=== PATIENT | female | born 1970 | race Caucasian/White ===

== ENCOUNTER → 2019-12-05 11:21 | Outpatient (CLI) | payer OTHER, MEDICAID, SELFPAY ==
--- NOTE | 2019-12-05 11:24 | DI.RAD.S_ITS ---
PROCEDURE: XR ANKLE RT MIN 3V INDICATIONS: Evaluate chronic ankle sprain TECHNIQUE: 3 views of the ankle were acquired. COMPARISON: None. FINDINGS: Bones: No fractures or dislocations. Ankle mortise is normally aligned. No suspicious bony lesions. Calcaneal spur is present. Minimal midfoot degenerative change. Soft tissues: No tibiotalar joint effusion. Achilles tendon appears normal. IMPRESSION: No visualized acute fracture or dislocation. However, if clinical concern and/or pain persist, short interval imaging followup in 7-10 days is recommended, as occult injury cannot be definitively excluded. Dictated by: Daphnie Molina M.D. on 12/05/2019 at 13:55 Approved by: Daphnie Molina M.D. on 12/05/2019 at 13:55
== END ==
PROVIDERS: PCP Family Medicine; Referring Provider Family Medicine; Visit Provider Family Medicine
DX: S93.401A Sprain of unspecified ligament of right ankle, initial encounter (principal); X58.XXXA Exposure to other specified factors, initial encounter
CPT/HCPCS: 73610

== ENCOUNTER → 2019-12-06 09:28 | Outpatient (CLI) | payer OTHER, MEDICAID, SELFPAY ==
[2019-12-06 10:19] LABS: Alanine Aminotransferase 15 IU/L (<35); Albumin Globulin Ratio 1.3 (1.0-2.8); Alkaline Phosphatase 37 U/L (38-126); Aspartate Aminotransferase 24 IU/L (14-36); BUN Creatinine Ratio 15.2 (6-22); Bilirubin Total 0.5 mg/dL (0.2-1.3); Blood Urea Nitrogen 10 mg/dL (7-17); Calcium 8.8 mg/dL (8.4-10.2); Carbon Dioxide 30 mmol/L (22-32); Chloride 105 mmol/L (98-107); Cholesterol 147 mg/dL (140-199); Estimated Glomerular Filt Rate > 60.0 mL/min (>60); Glucose 88 mg/dL (70-100); HDL Cholesterol 55 mg/dL (40-60); HEMOLYSIS < 15 (0-50); LDL Cholesterol Calculated 76 mg/dL (<100); Potassium 3.8 mmol/L (3.4-5.1); Sodium 138 mmol/L (137-145); Triglycerides 82 mg/dL (35-150)
[2019-12-06 10:24] LABS: Hemoglobin A1C% w Est Avg Glu 5.2 % (4.0-6.0)
== END ==
PROVIDERS: PCP Family Medicine; Referring Provider Family Medicine; Visit Provider Family Medicine
DX: Z00.01 Encounter for general adult medical examination with abnormal findings (principal)
CPT/HCPCS: 36415; 80053; 80061; 83036

== ENCOUNTER → 2019-12-09 11:17 | Outpatient (CLI) | payer OTHER, MEDICAID, SELFPAY ==
[2019-12-10 19:04] LABS: Fecal Immunochemical Test Negative (Negative)
== END ==
PROVIDERS: PCP Family Medicine; Referring Provider Family Medicine; Visit Provider Family Medicine
DX: Z00.01 Encounter for general adult medical examination with abnormal findings (principal)
CPT/HCPCS: 82274

== ENCOUNTER → 2020-01-06 15:56 | Outpatient (CLI) | payer OTHER, MEDICAID, SELFPAY | PROVIDERS: Family Provider Family Medicine; PCP Family Medicine; Visit Provider Registered Nurse | DX: R10.9 Unspecified abdominal pain (principal) | CPT/HCPCS: 87086 ==

== ENCOUNTER → 2020-01-06 16:00 | Outpatient (CLI) | payer OTHER, MEDICAID, SELFPAY ==
[2020-01-06 17:10] LABS: Add Manual Diff / Slide Review NO; Basophils Absolute Auto 100 /uL (0-100); Basophils Percent Auto 0.6 % (0-2); Eosinophils Absolute Auto 0 /uL (0-450); Eosinophils Percent Auto 0.5 % (2-4); Hematocrit 39.9 % (36-46); Hemoglobin 13.5 g/dL (12.0-16.0); Lymphocytes Absolute Auto 1800 /uL (1100-4500); Lymphocytes Percent Auto 22.4 % (25-40); Mean Corpuscular HGB Conc 33.7 % (30-36); Mean Corpuscular Hemoglobin 32.3 PG (26-34); Mean Corpuscular Volume 95.8 fL (80-100); Monocytes Absolute Auto 600 /uL (0-900); Monocytes Percent Auto 6.9 % (3-14); Neutrophils Absolute Auto 5600 /uL (1500-7000); Neutrophils Percent Auto 69.6 % (50-75); Platelet Count 211 X10^3/uL (150-400); Red Blood Cell Count 4.16 X10^6/uL (4.0-5.2); Red Cell Distribution Width 12.7 % (11.6-14.8); White Blood Cell Count 8.1 X10^3/uL (4.5-11.0)
[2020-01-06 17:29] LABS: Alanine Aminotransferase 16 IU/L (<35); Albumin 4.3 g/dL (3.5-5.0); Albumin Globulin Ratio 1.3 (1.0-2.8); Alkaline Phosphatase 49 U/L (38-126); Aspartate Aminotransferase 25 IU/L (14-36); Bilirubin Total 0.5 mg/dL (0.2-1.3); Blood Urea Nitrogen 13 mg/dL (7-17); Calcium 9.1 mg/dL (8.4-10.2); Carbon Dioxide 27 mmol/L (22-32); Chloride 106 mmol/L (98-107); Estimated Glomerular Filt Rate > 60.0 mL/min (>60); Globulin 3.4 g/dL (1.7-4.1); Glucose 102 mg/dL (70-100); HEMOLYSIS < 15 (0-50); Lipase 93 U/L (23-300); Potassium 3.4 mmol/L (3.4-5.1); Sodium 138 mmol/L (137-145); Total Protein 7.7 g/dL (6.3-8.2)
== END ==
PROVIDERS: Family Provider Family Medicine; PCP Family Medicine; Referring Provider Registered Nurse; Visit Provider Registered Nurse
DX: R10.9 Unspecified abdominal pain (principal)
CPT/HCPCS: 36415; 80053; 83690; 85025; 87086

== ENCOUNTER → 2020-01-13 09:49 | Outpatient (CLI) | payer OTHER, MEDICAID, SELFPAY ==
--- NOTE | 2020-01-13 09:51 | DI.US.S_ITS ---
PROCEDURE: US RENAL COMPLETE INDICATIONS: RIGHT FLANK PAIN TECHNIQUE: Real-time scanning was performed of the kidneys and bladder, with image documentation. COMPARISON: None. FINDINGS: Kidneys: Kidneys are normal in size. Right kidney measures 12.9 cm long; left kidney measures 10.6 cm long. Right renal cortical thickness is 1.6 cm; left renal cortical thickness is 0.9 cm. Renal cortical echotexture is normal. No hydronephrosis or nephrolithiasis. No suspicious solid mass lesions. Bladder: Pre-void bladder volume is 357 mL. Post-void residual is 37 mL. Pre-void images demonstrate no intraluminal masses or stones. On pre-void images, both ureteral jets are noted with color Doppler interrogation. (Of note, ureteral jets may not be detectable in up to 25% of cases due to insufficient differences in specific gravity between ureteral and bladder urine). Miscellaneous: No free pelvic fluid. IMPRESSION: No hydronephrosis is seen. Normal appearing kidneys. Mild to moderate postvoid residual, 37 cc. Dictated by: Rosalio Monroy M.D. on 01/13/2020 at 9:57 Approved by: Rosalio Monroy M.D. on 01/13/2020 at 9:58
== END ==
PROVIDERS: Family Provider Family Medicine; PCP Family Medicine; Referring Provider Registered Nurse; Visit Provider Registered Nurse
DX: R10.9 Unspecified abdominal pain (principal)
CPT/HCPCS: 76770

== ENCOUNTER → 2020-01-20 14:56 | Outpatient (CLI) | payer OTHER, MEDICAID, SELFPAY ==
[2020-01-20 15:03] LABS: Bacteria Urine None Seen; RBC Urine None Seen (0-5/HPF); WBC Urine None Seen (0-5/HPF)
[2020-01-20 16:17] LABS: Appearance Urine UA CLEAR; Bilirubin Urine UA NEGATIVE (NEGATIVE); Color Urine UA YELLOW; Glucose Urine UA NEGATIVE (Negative); Ketones Urine UA 1+ (NEGATIVE); Leukocyte Esterase Urine UA NEGATIVE (NEGATIVE); Nitrite Urine UA NEGATIVE (Negative); Occult Blood Urine UA TRACE-INTACT (Negative); Protein Urine UA NEGATIVE (Negative); Urobilinogen Urine UA 0.2 E.U./dL (0.2)
[2020-01-20 16:24] LABS: pH Urine UA 5.5 (4.5-8.0)
[2020-01-20 16:30] LABS: Culture Indicated Urine Cult Not Indicated; Urine Comments Microscopic Normal
== END ==
PROVIDERS: Family Provider Family Medicine; PCP Family Medicine; Referring Provider Registered Nurse; Visit Provider Registered Nurse
DX: R10.9 Unspecified abdominal pain (principal)
CPT/HCPCS: 81001

== ENCOUNTER → 2020-01-30 08:59 | Outpatient (CLI) | payer OTHER, MEDICAID, SELFPAY ==
--- NOTE | 2020-01-30 09:19 | DI.CT.S_ITS ---
PROCEDURE: CT KIDNEY URETER BLADDER (KUB) INDICATIONS: right flank pain TECHNIQUE: Noncontrast 5 mm thick sections acquired from the diaphragms to the symphysis. 5 mm thick coronal and sagittal reformats were then performed. For radiation dose reduction, the following was used: automated exposure control, adjustment of mA and/or kV according to patient size. COMPARISON: None. FINDINGS: Image quality: Excellent. Lung bases: Lung bases are clear. Heart size is normal. Urinary system: Right kidney: No stones or hydronephrosis. Right ureter: Unremarkable Left kidney: No stones or hydronephrosis. Left ureter: Unremarkable Bladder: No bladder stones. No bladder wall thickening. Other solid organs: There is a 1.4 cm pulmonary nodule in the left lower lobe on image 3/2. Liver is normal in size. There is a 4.3 cm maximum diameter hypodense right lobe liver lesion in segment 6. Gallbladder is unremarkable. Pancreas is normal in contours. Spleen is normal in size. No adrenal nodules. Peritoneum and bowel: Unenhanced bowel loops demonstrate normal wall thickness and caliber. No free fluid or air. Nodes and vessels: No retroperitoneal or mesenteric adenopathy by size criteria. Aorta and inferior vena cava are normal in caliber. Abdominal wall: No ventral hernias. Pelvis: No free pelvic fluid. No inguinal hernias or adenopathy. Bones: No suspicious bony lesions. No vertebral body compression fractures. IMPRESSION: 1. No evidence of renal stone, ureteral stone, or hydronephrosis. 2. There is a 4.3 cm maximum diameter right lobe liver lesion, as well as a 1.4 cm left lower lobe pulmonary nodule. Consider metastatic disease. Recommend CT of the chest, abdomen, and pelvis with contrast. Dictated by: Jey Warner M.D. on 01/30/2020 at 9:46 Approved by: Jey Warner M.D. on 01/30/2020 at 9:58
== END ==
PROVIDERS: Family Provider Family Medicine; PCP Family Medicine; Referring Provider Registered Nurse; Visit Provider Registered Nurse
DX: R10.84 Generalized abdominal pain (principal); R10.9 Unspecified abdominal pain; R91.1 Solitary pulmonary nodule; K76.9 Liver disease, unspecified
CPT/HCPCS: 74176

== ENCOUNTER → 2020-02-03 15:39 | Outpatient (CLI) | payer OTHER, MEDICAID, SELFPAY ==
--- NOTE | 2020-02-03 15:42 | DI.RAD.S_ITS ---
PROCEDURE: XR LUMBAR SPINE 2-3V INDICATIONS: lower back pain TECHNIQUE: 3 views of the lumbar spine were acquired. COMPARISON: None. FINDINGS: Bones: 5 [id number] vertebrae are present. There is trace retrolisthesis of L2 on L3, L3 on L4. Moderate to severe disc and foraminal narrowing are noted at L4-5, moderate at L5-S1. Multilevel non bridging anterior osteophytes are present most notable at L1, L2 and L3. No vertebral body compression fractures. No suspicious bony lesions. Soft tissues: Overlying bowel gas pattern is normal. No suspicious soft tissue calcifications. IMPRESSION: Degenerative changes most notable at L5-S1. Dictated by: Daphnie Molina M.D. on 02/03/2020 at 16:51 Approved by: Daphnie Molina M.D. on 02/03/2020 at 16:51
== END ==
PROVIDERS: Family Provider Family Medicine; PCP Family Medicine; Referring Provider Registered Nurse; Visit Provider Registered Nurse
DX: M54.5 Low back pain (principal); M47.817 Spondylosis without myelopathy or radiculopathy, lumbosacral region
CPT/HCPCS: 72100

== ENCOUNTER → 2020-02-05 10:24 | Outpatient (CLI) | payer OTHER, MEDICAID, SELFPAY ==
--- NOTE | 2020-02-05 10:51 | DI.CT.S_ITS ---
PROCEDURE: CT CHEST ABD PEL W CON INDICATIONS: Liver mass TECHNIQUE: After the administration of intravenous contrast, 5 mm thick sections acquired from the lung apices to the symphysis. 5 mm coronal and sagittal reformats were performed, with additional 7 mm MIP reformats through the lungs. For radiation dose reduction, the following was used: automated exposure control, adjustment of mA and/or kV according to patient size. COMPARISON: [facility], CT, CT KIDNEY URETER BLADDER (KUB), 01/30/2020, 9:04. FINDINGS: Image quality: Excellent. CHEST: Lungs and pleura: Within the left lower lobe, there is a 1.5 cm lobulated mass, as on series 3, image 151. There is a 4 mm subpleural nodule seen involving the right upper lobe posteriorly, as on series 3, image 47. Minimal infiltrate is seen involving the lingula laterally, as on series 3, image 101. No pleural effusions or pneumothorax. Central and peripheral airways appear patent and normal in caliber. Mediastinum: Heart size is normal. No pericardial effusion. No mediastinal or hilar adenopathy by size criteria. Thoracic aorta and central pulmonary arteries are normal in size. Esophagus is normal in caliber. No hiatal hernia. Chest wall: No axillary or supraclavicular adenopathy by size criteria. Thyroid gland demonstrates no significant abnormality. ABDOMEN: Solid organs: Within the right inferior liver medially (segment 6), there is again seen a poorly enhancing mass that measures 4.8 x 3.6 cm in greatest axial dimension, with a craniocaudal extent of 4.3 cm. No definite additional liver masses are seen. Gallbladder is partially collapsed at the time of this study. Biliary system is non dilated. Pancreas enhances normally. Spleen is normal in size and enhancement. No adrenal nodules. Kidneys demonstrate normal size and enhancement, without hydronephrosis. Peritoneum and bowel: Bowel loops demonstrate normal wall thickness and caliber. No free fluid or air. A normal appendix is incidentally noted. Nodes and vessels: No retroperitoneal or mesenteric adenopathy by size criteria. Aorta and inferior vena cava are normal in size. Miscellaneous: No ventral hernias. PELVIS: Genitourinary: Bladder wall thickness is normal. Miscellaneous: No inguinal hernias or adenopathy. Bones: No suspicious bony lesions. No vertebral body compression fractures. Focal L5-S1 degenerative change is seen. Milder degenerative changes are seen elsewhere. IMPRESSION: The previously seen liver mass and left lower lobe pulmonary nodule are again seen. Within the right lung apex, there is a 4 mm subpleural nodule seen, which may represent metastatic disease, although is more likely related to a subpleural lymph node. No additional masses or enlarged lymph nodes are detected. If clinically appropriate, please consider a dedicated PET-CT for further evaluation. Within the lateral lingula, there is mild infiltrate seen. Incidental note is made of: Focal L5-S1 degenerative change Dictated by: Rosalio Monroy M.D. on 02/05/2020 at 9:51 Approved by: Rosalio Monroy M.D. on 02/05/2020 at 10:01
== END ==
PROVIDERS: Family Provider Family Medicine; PCP Family Medicine; Referring Provider Family Medicine; Visit Provider Family Medicine
DX: R16.0 Hepatomegaly, not elsewhere classified (principal); R91.1 Solitary pulmonary nodule; M47.817 Spondylosis without myelopathy or radiculopathy, lumbosacral region
CPT/HCPCS: 71260; 74177; Q9967

== ENCOUNTER → 2020-02-23 10:46 | Outpatient (CLI) | payer OTHER, MEDICAID, SELFPAY ==
[2020-02-23 11:30] LABS: Add Manual Diff / Slide Review NO; Basophils Absolute Auto 0 /uL (0-100); Basophils Percent Auto 0.5 % (0-2); Eosinophils Absolute Auto 100 /uL (0-450); Eosinophils Percent Auto 2.6 % (2-4); Hematocrit 39.4 % (36-46); Hemoglobin 13.1 g/dL (12.0-16.0); Lymphocytes Absolute Auto 1600 /uL (1100-4500); Lymphocytes Percent Auto 30.9 % (25-40); Mean Corpuscular HGB Conc 33.1 % (30-36); Mean Corpuscular Hemoglobin 32.7 PG (26-34); Mean Corpuscular Volume 98.7 fL (80-100); Monocytes Absolute Auto 500 /uL (0-900); Monocytes Percent Auto 9.3 % (3-14); Neutrophils Absolute Auto 2900 /uL (1500-7000); Neutrophils Percent Auto 56.7 % (50-75); Platelet Count 140 X10^3/uL (150-400); Red Blood Cell Count 3.99 X10^6/uL (4.0-5.2); Red Cell Distribution Width 13.3 % (11.6-14.8); White Blood Cell Count 5.1 X10^3/uL (4.5-11.0)
[2020-02-23 11:41] LABS: Prothrombin Time 11.8 SECONDS (10.1-12.7)
[2020-02-23 11:44] LABS: PTT Partial Thromboplastin Tim 27 SECONDS (26.4-36.2)
== END ==
PROVIDERS: Family Provider Family Medicine; PCP Family Medicine; Referring Provider Family Medicine; Visit Provider Family Medicine
DX: K76.9 Liver disease, unspecified (principal); R91.1 Solitary pulmonary nodule
CPT/HCPCS: 36415; 85025; 85610; 85730

== ENCOUNTER → 2020-02-25 08:38 | Outpatient (CLI) | payer OTHER, MEDICAID, SELFPAY ==
[2020-02-25 11:43] LABS: COVID19 -Nasal RAPID POSITIVE (Negative)
== END ==
PROVIDERS: Family Provider Family Medicine; PCP Family Medicine; Visit Provider Nurse Practitioner
DX: U07.1 COVID-19 (principal)
CPT/HCPCS: 87635

== ENCOUNTER → 2020-03-08 11:16 | Outpatient (CLI) | payer OTHER, MEDICAID, SELFPAY ==
[2020-03-08 12:16] LABS: Add Manual Diff / Slide Review NO; Basophils Absolute Auto 0 /uL (0-100); Basophils Percent Auto 0.5 % (0-2); Eosinophils Absolute Auto 100 /uL (0-450); Eosinophils Percent Auto 2.3 % (2-4); Hematocrit 38.3 % (36-46); Hemoglobin 12.5 g/dL (12.0-16.0); Lymphocytes Absolute Auto 1600 /uL (1100-4500); Lymphocytes Percent Auto 26.9 % (25-40); Mean Corpuscular HGB Conc 32.7 % (30-36); Mean Corpuscular Hemoglobin 32.3 PG (26-34); Mean Corpuscular Volume 98.7 fL (80-100); Monocytes Absolute Auto 500 /uL (0-900); Monocytes Percent Auto 7.6 % (3-14); Neutrophils Absolute Auto 3800 /uL (1500-7000); Neutrophils Percent Auto 62.7 % (50-75); Platelet Count 233 X10^3/uL (150-400); Red Blood Cell Count 3.88 X10^6/uL (4.0-5.2)
[2020-03-08 12:27] LABS: Prothrombin Time 11.6 SECONDS (10.1-12.7)
== END ==
PROVIDERS: Family Provider Family Medicine; PCP Family Medicine; Referring Provider Family Medicine; Visit Provider Family Medicine
DX: K76.9 Liver disease, unspecified (principal); R16.0 Hepatomegaly, not elsewhere classified; R91.1 Solitary pulmonary nodule
CPT/HCPCS: 36415; 85025; 85610

== ENCOUNTER → 2020-03-10 08:32 | Outpatient (CLI) | payer OTHER, MEDICAID, SELFPAY ==
[2020-03-10 12:08] LABS: COVID19 -Nasal RAPID Negative (Negative)
== END ==
PROVIDERS: Family Provider Family Medicine; PCP Family Medicine; Visit Provider Family Medicine
DX: R05 Cough (principal); R91.1 Solitary pulmonary nodule
CPT/HCPCS: 87635

== ENCOUNTER 2020-03-12 08:16 | Outpatient (CLI) | payer OTHER, MEDICAID, SELFPAY | END 2020-03-12 17:00 | disposition home or self-care (01) | LOC: OR 08:18 | PROVIDERS: Family Provider Family Medicine; PCP Family Medicine; Referring Provider Family Medicine; Visit Provider Family Medicine ==

== ENCOUNTER 2020-03-26 09:00 | Outpatient (RCR) | payer OTHER, MEDICAID, SELFPAY ==
--- NOTE | 2020-01-05 14:15 | PT.OIE ---
Current Diagnoses Sprain of unspecified ligament of right ankle, initial encounter (01/05/20) Past Medical History (Last Updated 12/09/19 @ 07:43 by Breonna Harp) Ankle pain (~2017) Marijuana smoker Past Surgical History (Last Updated 12/09/19 @ 07:43 by Breonna Harp) Anesthesia History of hand surgery (~08/2010) Visit Care Team Role Provider Type Allen Bolaños MD Attending Provider Physician Family Provider Primary Care Provider Referring Provider Specialty: Family Practice Address: [address] [place] [address], [facility] Email: [email or web address] Physical Therapy Initial Evaluation PT-OP-A Visit Information Start: 01/05/20 07:24 Freq: Status: Active Protocol: Document 01/05/20 10:30 MB (Rec: 01/05/20 10:32 MB [id number]) Out-Patient Physical Therapy Visit Information Visit Information Visit Type Initial Evaluation Visit Note [facility] Visit Start Time 10:30 Visit Stop Time 11:11 Total Visit Minutes 41 Visit Number 1 Number of HOME HEALTH OUTREACH COORDINATOR Visits 0 Evaluation Information Evaluation Date 01/05/20 PT-OP-B Current Condition Start: 01/05/20 07:24 Freq: Status: Active Protocol: Document 01/05/20 10:30 MB (Rec: 01/05/20 10:43 MB [id number]) Current Condition History of Current Condition Onset Date August 2017 Current Complaints Pain in the right ankle History of Current Condition Pt reports that in August 2017, she was hiking and stepped in a hole and twisted her ankle. She had x-rays and MRI and they were negative. She was given an ASO. They recommended PT at that time. She did not have PT. She reports pain in the anterolateral ankle and that she has a lot of swelling . She rates pain up to 8/10 at times. She has pain with doing the laundry when she has to go up and down the stairs. She has trouble doing inclines. She wears her ASO and boots when hiking. Recently, she went back to [place] to help her kids move and she was at the dump. She was turning to throw stuff out and she twisted on her right. She had constant pain since that time That was in September 2019. When she was younger, she did martial arts and her ankles used to swell up. She had arthroscopic surgery and was told that she might need further surgery and her mother declined. The ankles feel weak. Prior Treatments and Tests X-ray right ankle 12/05/2019: NAD Treatment Goals Patient/Caregiver Goals To strengthen and walk without fear PT-OP-C Subjective Start: 01/05/20 07:24 Freq: Status: Active Protocol: Document 01/05/20 10:30 MB (Rec: 01/05/20 10:43 MB [id number]) OP-PT Subjective Patient Comments Patient Comments See history of current condition PT-OP-D Balance Start: 01/05/20 07:24 Freq: Status: Active Protocol: Document 01/05/20 10:30 MB (Rec: 01/05/20 14:14 MB [id number]) Balance Tests Romberg Romberg Normal EO and EC Tandem Tandem Standing Left behind at least 30 sec; reaches for opposite posit PT-OP-G Mobility & Gait Start: 01/05/20 07:24 Freq: Status: Active Protocol: Document 01/05/20 10:30 MB (Rec: 01/05/20 14:14 MB [id number]) OP Gait Assessment Gait Gait Assistance Required: Independent Distance (Feet) 75 Assistive Devices Assistive Device None Orthotic/Prosthetic Devices or Brace: Yes Gait Deviations General Gait Pattern Antalgic,Decreased Stride Length,Decreased Feet Clearance,Lateral Trunk Lean, Wide Based Gait Factors Limiting Gait Function Factors Limiting Gait Function Decreased Strength,Pain,Poor Balance Comments Gait Comments Pt presents with increased lateral trunk movement B with gait and after PT assessment, presents with decreased heel strike on the right foot with toe touch gait with weight acceptance and push off. Note, she wears ASO on right foot upon arrival and walks without it after assessment. PT-OP-J Posture/Palpation/Skin Start: 01/05/20 07:24 Freq: Status: Active Protocol: Document 01/05/20 10:30 MB (Rec: 01/05/20 14:14 MB [id number]) Skin Assessment Other Assessments Skin Assessment Comments Standing posture: increased body mass, greater over hips/ LEs, decreased thoracic kyphosis, increased lumbar lordosis, increased supination left foot and increased WB through right great toe, right shoulder and right iliac crest higher than the left. Pt presents with some edema around the right ankle. PT-OP-K Range of Motion Start: 01/05/20 07:24 Freq: Status: Active Protocol: Document 01/05/20 10:30 MB (Rec: 01/05/20 14:14 MB [id number]) Ankle and Foot Goniometric Range of Motion Ankle and Foot ROM Limitations Comments Ankle ROM B is normal, not pushed d/t likely ligamentous injury and instability from injuries PT-OP-M Strength Start: 01/05/20 07:24 Freq: Status: Active Protocol: Document 01/05/20 10:30 MB (Rec: 01/05/20 14:14 MB [id number]) Hip Strength Hip Manual Muscle Testing Left Flexion (L2) 4 Good Abduction 3+ Fair+ Right Flexion (L2) 4 Good Abduction 3+ Fair+ Knee Strength Knee Manual Muscle Testing Left Flexion (S2) 5 Normal Extension (L3) 5 Normal Right Flexion (S2) 4 Good Extension (L3) 5 Normal Ankle/Foot Strength Ankle and Foot Manual Muscle Testing Left Dorsiflexion (L4) 5 Normal Inversion 5 Normal Eversion (S1) 4 Good Comments Pt is able to perform at least 20 heel raises with wall support Right Dorsiflexion (L4) 5 Normal Inversion 4 Good Eversion (S1) 4 Good Comments Pt is able to perform 5 heel raises with wall support PT-OP-Q Treatments Start: 01/05/20 07:24 Freq: Status: Active Protocol: Document 01/05/20 10:30 MB (Rec: 01/05/20 13:56 MB [id number]) Therapeutic Exercises Standing Exercises Tandem barefoot Side bilateral Comments Pt challenged by Tandem with right foot behind and added to HEP PT-OP-T Assessment and Plan Start: 01/05/20 07:24 Freq: Status: Active Protocol: Document 01/05/20 10:30 MB (Rec: 01/05/20 14:14 MB [id number]) Physical Therapy Assessment Rehab Potential Rehabilitation Potential Fair Evaluation Complexity Number of Personal Factors/Comorbidities 1-2 Number of Body Systems Impaired 1-2 Clinical Presentation at Evaluation Evolving Impairments Impairments Activity Tolerance,Balance, Edema,Functional Activities, Functional Mobility,Gait, Integument,Pain,Posture,Soft Tissue Mobility,Strength Goals 4 Jail Goal (LTG) Pt will perform at least 20 reps heel raises right ankle with wall support to indicate improved PF strength and ankle stability by 03/06/2020. LTG Duration 8 weeks 3 Jail Goal (LTG) Pt will perform progressive HEP with I including strengthening, postural and balance exercises to decrease pain and improve ankle stability by 03/06/2020. LTG Duration 8 weeks 2 Jail Goal (LTG) Pt will perform WNLs on a standardized balance test to decrease fall risk by 2020. LTG Duration 8 weeks 1 Impairment LEF score reflects 25% impairment Senior Engineering Associate Goal (LTG) Pt will present with an improved LEF score to reflect no more than 20% impairment to allow return to hiking by . LTG Duration 8 weeks Assessment Summary Assessment Pt is a 49 y/o female presenting with chronic ankle injuries and pain. She presents with hyperlaxity of her elbows and may have a hyperlaxity problem given reports of multiple ankle strains/sprains. She presents with antalgic gait, right ankle edema, right ankle weakness and decreased balance . She also presents with right knee and B hip weakness. She will benefit from PT to improve strength, balance, and ankle stability. Pt would like to return to hiking. Physical Therapy Plan Frequency and Duration Frequency of Treatment 2x/Week Duration of Treatment 8 weeks Plan of Care Start Date 01/05/20 Plan of Care End Date 03/08/20 Therapeutic Interventions Therapeutic Interventions Balance Training,Canalithic Repositioning,Gait Training, Home Exercise Program,Joint Mobilizations,Manual Therapy, Neuromuscular Re-education, Patient/Caregiver Education, Self-Care/Home Management, Sensory Integration,Soft Tissue Mobilization,Taping, Therapeutic Activities, Therapeutic Exercises Modalities Cold Pack/Ice Massage,Electric Stimulation,Hot Packs, Ultrasound Next Visit Focus/Plan Next Note Type Treatment Note Next Visit Plan Initiate recumbent bike for ankle strengthening and range, progress other exercises and consider ankle hammock strengtening exercise
--- NOTE | 2020-01-05 14:15 | PT.OPPOC ---
Physical, Occupational & Speech Therapy At [facility] Current Diagnoses Sprain of unspecified ligament of right ankle, initial encounter (01/05/20) Visit Care Team Role Provider Type Allen Bolaños MD Attending Provider Physician Family Provider Primary Care Provider Referring Provider Specialty: Family Practice Address: [address] [place] [address], [facility] Email: [email or web address] Plan Of Care PT-OP-T Assessment and Plan Start: 01/05/20 07:24 Freq: Status: Active Protocol: Document 01/05/20 10:30 MB (Rec: 01/05/20 14:14 MB [id number]) Physical Therapy Assessment Rehab Potential Rehabilitation Potential Fair Evaluation Complexity Number of Personal Factors/Comorbidities 1-2 Number of Body Systems Impaired 1-2 Clinical Presentation at Evaluation Evolving Impairments Impairments Activity Tolerance,Balance, Edema,Functional Activities, Functional Mobility,Gait, Integument,Pain,Posture,Soft Tissue Mobility,Strength Goals 4 Snf Goal (LTG) Pt will perform at least 20 reps heel raises right ankle with wall support to indicate improved PF strength and ankle stability by 03/06/2020. LTG Duration 8 weeks 3 Snf Goal (LTG) Pt will perform progressive HEP with I including strengthening, postural and balance exercises to decrease pain and improve ankle stability by 03/06/2020. LTG Duration 8 weeks 2 Snf Goal (LTG) Pt will perform WNLs on a standardized balance test to decrease fall risk by 2020. LTG Duration 8 weeks 1 Impairment LEF score reflects 25% impairment Snf Goal (LTG) Pt will present with an improved LEF score to reflect no more than 20% impairment to allow return to hiking by . LTG Duration 8 weeks Assessment Summary Assessment Pt is a 49 y/o female presenting with chronic ankle injuries and pain. She presents with hyperlaxity of her elbows and may have a hyperlaxity problem given reports of multiple ankle strains/sprains. She presents with antalgic gait, right ankle edema, right ankle weakness and decreased balance . She also presents with right knee and B hip weakness. She will benefit from PT to improve strength, balance, and ankle stability. Pt would like to return to [facility]. Physical Therapy Plan Frequency and Duration Frequency of Treatment 2x/Week Duration of Treatment 8 weeks Plan of Care Start Date 01/05/20 Plan of Care End Date 03/08/20 Therapeutic Interventions Therapeutic Interventions Balance Training,Canalithic Repositioning,Gait Training, Home Exercise Program,Joint Mobilizations,Manual Therapy, Neuromuscular Re-education, Patient/Caregiver Education, Self-Care/Home Management, Sensory Integration,Soft Tissue Mobilization,Taping, Therapeutic Activities, Therapeutic Exercises Modalities Cold Pack/Ice Massage,Electric Stimulation,Hot Packs, Ultrasound Next Visit Focus/Plan Next Note Type Treatment Note Next Visit Plan Initiate recumbent bike for ankle strengthening and range, progress other exercises and consider ankle hammock strengtening exercise Plan of Care Dates Plan of Care Start Date 01/05/20 Plan of Care End Date 03/08/20 Electronically Signed by: Arely Rubio, PT 01/05/20 0810 Please Sign and Return: I have reviewed this Plan of Care and certify that the skilled therapy services above are required to meet the patient?s needs. Physician Signature Date Printed Name and Credentials Clinical Instructor Signature Printed Name and Credentials
--- NOTE | 2020-01-15 11:14 | PT.OTN ---
Current Diagnoses Sprain of unspecified ligament of right ankle, initial encounter (01/15/20) Physical Therapy Treatment Note PT-OP-A Visit Information Start: 01/05/20 07:24 Freq: Status: Active Protocol: Document 01/15/20 10:30 MB (Rec: 01/15/20 11:11 MB [id number]) Out-Patient Physical Therapy Visit Information Visit Information Visit Type Treatment Note Visit Start Time 10:30 Visit Stop Time 11:11 Total Visit Minutes 41 Visit Number 2 PT-OP-B Current Condition Start: 01/05/20 07:24 Freq: Status: Active Protocol: Document 01/05/20 10:30 MB (Rec: 01/05/20 10:43 MB [id number]) Current Condition History of Current Condition Onset Date August 2017 Current Complaints Pain in the right ankle History of Current Condition Pt reports that in August 2017, she was hiking and stepped in a hole and twisted her ankle. She had x-rays and MRI and they were negative. She was given an ASO. They recommended PT at that time. She did not have PT. She reports pain in the anterolateral ankle and that she has a lot of swelling . She rates pain up to 8/10 at times. She has pain with doing the laundry when she has to go up and down the stairs. She has trouble doing inclines. She wears her ASO and boots when hiking. Recently, she went back to [place] to help her kids move and she was at the dump. She was turning to throw stuff out and she twisted on her right. She had constant pain since that time That was in September 2019. When she was younger, she did martial arts and her ankles used to swell up. She had arthroscopic surgery and was told that she might need further surgery and her mother declined. The ankles feel weak. Prior Treatments and Tests X-ray right ankle 12/05/2019: NAD Treatment Goals Patient/Caregiver Goals To strengthen and walk without fear PT-OP-C Subjective Start: 01/05/20 07:24 Freq: Status: Active Protocol: Document 01/15/20 10:30 MB (Rec: 01/15/20 11:11 MB [id number]) OP-PT Subjective Patient Comments Patient Comments I actually got to go on an anger walk for 5.5 miles and did well. I wore my compression hose and boots. Pt reports that she did step wrong out of the truck and the right foot bent back. She tweaked it and it recovered. PT-OP-D Balance Start: 01/05/20 07:24 Freq: Status: Active Protocol: Document 01/05/20 10:30 MB (Rec: 01/05/20 14:14 MB [id number]) Balance Tests Romberg Romberg Normal EO and EC Tandem Tandem Standing Left behind at least 30 sec; reaches for opposite posit PT-OP-G Mobility & Gait Start: 01/05/20 07:24 Freq: Status: Active Protocol: Document 01/05/20 10:30 MB (Rec: 01/05/20 14:14 MB [id number]) OP Gait Assessment Gait Gait Assistance Required: Independent Distance (Feet) 75 Assistive Devices Assistive Device None Orthotic/Prosthetic Devices or Brace: Yes Gait Deviations General Gait Pattern Antalgic,Decreased Stride Length,Decreased Feet Clearance,Lateral Trunk Lean, Wide Based Gait Factors Limiting Gait Function Factors Limiting Gait Function Decreased Strength,Pain,Poor Balance Comments Gait Comments Pt presents with increased lateral trunk movement B with gait and after PT assessment, presents with decreased heel strike on the right foot with toe touch gait with weight acceptance and push off. Note, she wears ASO on right foot upon arrival and walks without it after assessment. PT-OP-J Posture/Palpation/Skin Start: 01/05/20 07:24 Freq: Status: Active Protocol: Document 01/05/20 10:30 MB (Rec: 01/05/20 14:14 MB [id number]) Skin Assessment Other Assessments Skin Assessment Comments Standing posture: increased body mass, greater over hips/ LEs, decreased thoracic kyphosis, increased lumbar lordosis, increased supination left foot and increased WB through right great toe, right shoulder and right iliac crest higher than the left. Pt presents with some edema around the right ankle. PT-OP-K Range of Motion Start: 01/05/20 07:24 Freq: Status: Active Protocol: Document 01/05/20 10:30 MB (Rec: 01/05/20 14:14 MB [id number]) Ankle and Foot Goniometric Range of Motion Ankle and Foot ROM Limitations Comments Ankle ROM B is normal, not pushed d/t likely ligamentous injury and instability from injuries PT-OP-M Strength Start: 01/05/20 07:24 Freq: Status: Active Protocol: Document 01/05/20 10:30 MB (Rec: 01/05/20 14:14 MB [id number]) Hip Strength Hip Manual Muscle Testing Left Flexion (L2) 4 Good Abduction 3+ Fair+ Right Flexion (L2) 4 Good Abduction 3+ Fair+ Knee Strength Knee Manual Muscle Testing Left Flexion (S2) 5 Normal Extension (L3) 5 Normal Right Flexion (S2) 4 Good Extension (L3) 5 Normal Ankle/Foot Strength Ankle and Foot Manual Muscle Testing Left Dorsiflexion (L4) 5 Normal Inversion 5 Normal Eversion (S1) 4 Good Comments Pt is able to perform at least 20 heel raises with wall support Right Dorsiflexion (L4) 5 Normal Inversion 4 Good Eversion (S1) 4 Good Comments Pt is able to perform 5 heel raises with wall support PT-OP-Q Treatments Start: 01/05/20 07:24 Freq: Status: Active Protocol: Document 01/15/20 10:30 MB (Rec: 01/15/20 11:11 MB [id number]) Cardio Equipment Recumbent Stepper (Sci-Fit) Duration (Minutes) 12 Resistance 3 Therapeutic Exercises Supine Exercises Jose Juan stretch with core engagement Side bilateral Comments Core engagement with pelvic tilt first, progressive heel to buttock Hamstring stretch with AP Side bilateral Equipment Used Martial art belt Comments Pt performs APs x30 with stretch Sitting Exercises Toe flexion/DF with band, foot hammock Side bilateral Resistance Level 3 band, level 4 band Comments 10 reps slowly, shoe off, then 10 more reps harder band Standing Exercises Gastroc and soleus stretched and then toe raises Side bilateral Comments 30 sec each stretch followed by toe raises PT-OP-T Assessment and Plan Start: 01/05/20 07:24 Freq: Status: Active Protocol: Document 01/15/20 10:30 MB (Rec: 01/15/20 11:11 MB [id number]) Physical Therapy Assessment Rehab Potential Rehabilitation Potential Fair Evaluation Complexity Number of Personal Factors/Comorbidities 1-2 Number of Body Systems Impaired 1-2 Clinical Presentation at Evaluation Evolving Impairments Impairments Activity Tolerance,Balance, Edema,Functional Activities, Functional Mobility,Gait, Integument,Pain,Posture,Soft Tissue Mobility,Strength Goals 4 Windows Software Engineer Goal (LTG) Pt will perform at least 20 reps heel raises right ankle with wall support to indicate improved PF strength and ankle stability by 03/06/2020. LTG Duration 8 weeks 3 Windows Software Engineer Goal (LTG) Pt will perform progressive HEP with I including strengthening, postural and balance exercises to decrease pain and improve ankle stability by 03/06/2020. LTG Duration 8 weeks 2 Long-Term Goal (LTG) Pt will perform WNLs on a standardized balance test to decrease fall risk by 2020. LTG Duration 8 weeks 1 Impairment LEF score reflects 25% impairment Windows Software Engineer Goal (LTG) Pt will present with an improved LEF score to reflect no more than 20% impairment to allow return to hiking by . LTG Duration 8 weeks Assessment Summary Assessment Initiated strengthening and balance exercises today and pt responds well. Pt cannot bend right knee well with soleus stretch and she may benefit from ankle mobs future treatments. Con't progression. Physical Therapy Plan Frequency and Duration Frequency of Treatment 2x/Week Duration of Treatment 8 weeks Plan of Care Start Date 01/05/20 Plan of Care End Date 03/08/20 Therapeutic Interventions Therapeutic Interventions Balance Training,Canalithic Repositioning,Gait Training, Home Exercise Program,Joint Mobilizations,Manual Therapy, Neuromuscular Re-education, Patient/Caregiver Education, Self-Care/Home Management, Sensory Integration,Soft Tissue Mobilization,Taping, Therapeutic Activities, Therapeutic Exercises Modalities Cold Pack/Ice Massage,Electric Stimulation,Hot Packs, Ultrasound Next Visit Focus/Plan Next Note Type Treatment Note Next Visit Plan Right ankle mobs. Progress balance and strengthening exercises
--- NOTE | 2020-01-20 09:00 | PT.OTN ---
Addendum entered and electronically signed by Susan Matos, MEN'S SWIM COACH 01/20/20 09:04: Pt takes care of her fatherinlaw and wants better balance to be safe helping him if needed. Original Note: Current Diagnoses Sprain of unspecified ligament of right ankle, initial encounter (01/20/20) Physical Therapy Treatment Note PT-OP-A Visit Information Start: 01/05/20 07:24 Freq: Status: Active Protocol: Document 01/20/20 08:18 SP (Rec: 01/20/20 09:04 SP [id number]) Out-Patient Physical Therapy Visit Information Visit Information Visit Type Treatment Note Visit Start Time 08:18 Visit Stop Time 09:00 Total Visit Minutes 42 Visit Number 3 Number of MEN'S SWIM COACH Visits 1 PT-OP-B Current Condition Start: 01/05/20 07:24 Freq: Status: Active Protocol: Document 01/05/20 10:30 MB (Rec: 01/05/20 10:43 MB [id number]) Current Condition History of Current Condition Onset Date August 2017 Current Complaints Pain in the right ankle History of Current Condition Pt reports that in August 2017, she was hiking and stepped in a hole and twisted her ankle. She had x-rays and MRI and they were negative. She was given an ASO. They recommended PT at that time. She did not have PT. She reports pain in the anterolateral ankle and that she has a lot of swelling . She rates pain up to 8/10 at times. She has pain with doing the laundry when she has to go up and down the stairs. She has trouble doing inclines. She wears her ASO and boots when hiking. Recently, she went back to [place] to help her kids move and she was at the [place]. She was turning to throw stuff out and she twisted on her right. She had constant pain since that time That was in September 2019. When she was younger, she did martial arts and her ankles used to swell up. She had arthroscopic surgery and was told that she might need further surgery and her mother declined. The ankles feel weak. Prior Treatments and Tests X-ray right ankle 12/05/2019: NAD Treatment Goals Patient/Caregiver Goals To strengthen and walk without fear PT-OP-C Subjective Start: 01/05/20 07:24 Freq: Status: Active Protocol: Document 01/20/20 08:18 SP (Rec: 01/20/20 09:04 SP [id number]) OP-PT Subjective Patient Comments Patient Comments Pt stated just got an upright bike at home for her fatherinlaw and trialed it herself, was pretty sore. PT-OP-D Balance Start: 01/05/20 07:24 Freq: Status: Active Protocol: Document 01/05/20 10:30 MB (Rec: 01/05/20 14:14 MB [id number]) Balance Tests Romberg Romberg Normal EO and EC Tandem Tandem Standing Left behind at least 30 sec; reaches for opposite posit PT-OP-G Mobility & Gait Start: 01/05/20 07:24 Freq: Status: Active Protocol: Document 01/05/20 10:30 MB (Rec: 01/05/20 14:14 MB [id number]) OP Gait Assessment Gait Gait Assistance Required: Independent Distance (Feet) 75 Assistive Devices Assistive Device None Orthotic/Prosthetic Devices or Brace: Yes Gait Deviations General Gait Pattern Antalgic,Decreased Stride Length,Decreased Feet Clearance,Lateral Trunk Lean, Wide Based Gait Factors Limiting Gait Function Factors Limiting Gait Function Decreased Strength,Pain,Poor Balance Comments Gait Comments Pt presents with increased lateral trunk movement B with gait and after PT assessment, presents with decreased heel strike on the right foot with toe touch gait with weight acceptance and push off. Note, she wears ASO on right foot upon arrival and walks without it after assessment. PT-OP-J Posture/Palpation/Skin Start: 01/05/20 07:24 Freq: Status: Active Protocol: Document 01/05/20 10:30 MB (Rec: 01/05/20 14:14 MB [id number]) Skin Assessment Other Assessments Skin Assessment Comments Standing posture: increased body mass, greater over hips/ LEs, decreased thoracic kyphosis, increased lumbar lordosis, increased supination left foot and increased WB through right great toe, right shoulder and right iliac crest higher than the left. Pt presents with some edema around the right ankle. PT-OP-K Range of Motion Start: 01/05/20 07:24 Freq: Status: Active Protocol: Document 01/05/20 10:30 MB (Rec: 01/05/20 14:14 MB [id number]) Ankle and Foot Goniometric Range of Motion Ankle and Foot ROM Limitations Comments Ankle ROM B is normal, not pushed d/t likely ligamentous injury and instability from injuries PT-OP-M Strength Start: 01/05/20 07:24 Freq: Status: Active Protocol: Document 01/05/20 10:30 MB (Rec: 01/05/20 14:14 MB [id number]) Hip Strength Hip Manual Muscle Testing Left Flexion (L2) 4 Good Abduction 3+ Fair+ Right Flexion (L2) 4 Good Abduction 3+ Fair+ Knee Strength Knee Manual Muscle Testing Left Flexion (S2) 5 Normal Extension (L3) 5 Normal Right Flexion (S2) 4 Good Extension (L3) 5 Normal Ankle/Foot Strength Ankle and Foot Manual Muscle Testing Left Dorsiflexion (L4) 5 Normal Inversion 5 Normal Eversion (S1) 4 Good Comments Pt is able to perform at least 20 heel raises with wall support Right Dorsiflexion (L4) 5 Normal Inversion 4 Good Eversion (S1) 4 Good Comments Pt is able to perform 5 heel raises with wall support PT-OP-Q Treatments Start: 01/05/20 07:24 Freq: Status: Active Protocol: Document 01/20/20 08:18 SP (Rec: 01/20/20 09:04 SP [id number]) Cardio Equipment Recumbent Stepper (Sci-Fit) Duration (Minutes) 8 Resistance 3 Other 40 RPMs, 0.97 miles Therapeutic Exercises Supine Exercises Jose Juan stretch with core engagement Supine Exercise Name Discussed standing lunge version today while out for walks Side bilateral Comments Core engagement with pelvic tilt first (PPT), progressive heel to buttock Sitting Exercises PF, EV Equipment Used #4 TB Reps/Minutes 2x10 Comments cued proper form Toe flexion/DF with band, foot hammock Side bilateral Resistance level 4 band Comments 10 reps slowly, shoe off, then 10 more reps harder band Standing Exercises SLS Side bilateral Reps/Minutes R 6 , 30; L 30 + Comments cued glut, core facilitation with COG over EMILY stability semi tandem (stagger) corner Equipment Used corner, chair Reps/Minutes 4 min Comments WBOS, NBOS, semi tandem head turns, EC PT-OP-T Assessment and Plan Start: 01/05/20 07:24 Freq: Status: Active Protocol: Document 01/20/20 08:18 SP (Rec: 01/20/20 09:04 SP [id number]) Physical Therapy Assessment Goals 4 [facility] Goal (LTG) Pt will perform at least 20 reps heel raises right ankle with wall support to indicate improved PF strength and ankle stability by 03/06/2020. LTG Duration 8 weeks 3 [facility] Goal (LTG) Pt will perform progressive HEP with I including strengthening, postural and balance exercises to decrease pain and improve ankle stability by 03/06/2020. LTG Duration 8 weeks 2 [facility] Goal (LTG) Pt will perform WNLs on a standardized balance test to decrease fall risk by 2020. LTG Duration 8 weeks 1 Impairment LEF score reflects 25% impairment [facility] Goal (LTG) Pt will present with an improved LEF score to reflect no more than 20% impairment to allow return to hiking by . LTG Duration 8 weeks Assessment Summary Assessment Pt improved with standing stability today post cuing education for COG over EMILY, glut and core facilitation to progress in HEP toward functional mobilitiy personal goal to travel on vacation in Feb. Next tx add band walk, sit to stands, shuttle balance & trampoline and ethan walking. Physical Therapy Plan Frequency and Duration Frequency of Treatment 2x/Week Duration of Treatment 8 weeks Plan of Care Start Date 01/05/20 Plan of Care End Date 03/08/20 Therapeutic Interventions Therapeutic Interventions Balance Training,Canalithic Repositioning,Gait Training, Home Exercise Program,Joint Mobilizations,Manual Therapy, Neuromuscular Re-education, Patient/Caregiver Education, Self-Care/Home Management, Sensory Integration,Soft Tissue Mobilization,Taping, Therapeutic Activities, Therapeutic Exercises Modalities Cold Pack/Ice Massage,Electric Stimulation,Hot Packs, Ultrasound Next Visit Focus/Plan Next Note Type Treatment Note Next Visit Plan Assess preponse to last tx: SLS, corner stagger stance and Tb EV. Continue per PT POC: Right ankle mobs. Progress balance and strengthening exercises
--- NOTE | 2020-01-22 15:03 | PT.OTN ---
Current Diagnoses Sprain of unspecified ligament of right ankle, initial encounter (01/22/20) Physical Therapy Treatment Note PT-OP-A Visit Information Start: 01/05/20 07:24 Freq: Status: Active Protocol: Document 01/22/20 12:15 MB (Rec: 01/22/20 12:59 MB [id number]) Out-Patient Physical Therapy Visit Information Visit Information Visit Type Treatment Note Visit Start Time 12:15 Visit Stop Time 13:00 Total Visit Minutes 45 Visit Number 4 PT-OP-B Current Condition Start: 01/05/20 07:24 Freq: Status: Active Protocol: Document 01/05/20 10:30 MB (Rec: 01/05/20 10:43 MB [id number]) Current Condition History of Current Condition Onset Date August 2017 Current Complaints Pain in the right ankle History of Current Condition Pt reports that in August 2017, she was hiking and stepped in a hole and twisted her ankle. She had x-rays and MRI and they were negative. She was given an ASO. They recommended PT at that time. She did not have PT. She reports pain in the anterolateral ankle and that she has a lot of swelling . She rates pain up to 8/10 at times. She has pain with doing the laundry when she has to go up and down the stairs. She has trouble doing inclines. She wears her ASO and boots when hiking. Recently, she went back to [place] to help her kids move and she was at the dump. She was turning to throw stuff out and she twisted on her right. She had constant pain since that time That was in September 2019. When she was younger, she did martial arts and her ankles used to swell up. She had arthroscopic surgery and was told that she might need further surgery and her mother declined. The ankles feel weak. Prior Treatments and Tests X-ray right ankle 12/05/2019: NAD Treatment Goals Patient/Caregiver Goals To strengthen and walk without fear PT-OP-C Subjective Start: 01/05/20 07:24 Freq: Status: Active Protocol: Document 01/22/20 12:15 MB (Rec: 01/22/20 12:59 MB [id number]) OP-PT Subjective Patient Comments Patient Comments Pt states that she rode the new upright bike twice today. PT-OP-D Balance Start: 01/05/20 07:24 Freq: Status: Active Protocol: Document 01/05/20 10:30 MB (Rec: 01/05/20 14:14 MB [id number]) Balance Tests Romberg Romberg Normal EO and EC Tandem Tandem Standing Left behind at least 30 sec; reaches for opposite posit PT-OP-G Mobility & Gait Start: 01/05/20 07:24 Freq: Status: Active Protocol: Document 01/05/20 10:30 MB (Rec: 01/05/20 14:14 MB [id number]) OP Gait Assessment Gait Gait Assistance Required: Independent Distance (Feet) 75 Assistive Devices Assistive Device None Orthotic/Prosthetic Devices or Brace: Yes Gait Deviations General Gait Pattern Antalgic,Decreased Stride Length,Decreased Feet Clearance,Lateral Trunk Lean, Wide Based Gait Factors Limiting Gait Function Factors Limiting Gait Function Decreased Strength,Pain,Poor Balance Comments Gait Comments Pt presents with increased lateral trunk movement B with gait and after PT assessment, presents with decreased heel strike on the right foot with toe touch gait with weight acceptance and push off. Note, she wears ASO on right foot upon arrival and walks without it after assessment. PT-OP-J Posture/Palpation/Skin Start: 01/05/20 07:24 Freq: Status: Active Protocol: Document 01/05/20 10:30 MB (Rec: 01/05/20 14:14 MB [id number]) Skin Assessment Other Assessments Skin Assessment Comments Standing posture: increased body mass, greater over hips/ LEs, decreased thoracic kyphosis, increased lumbar lordosis, increased supination left foot and increased WB through right great toe, right shoulder and right iliac crest higher than the left. Pt presents with some edema around the right ankle. PT-OP-K Range of Motion Start: 01/05/20 07:24 Freq: Status: Active Protocol: Document 01/05/20 10:30 MB (Rec: 01/05/20 14:14 MB [id number]) Ankle and Foot Goniometric Range of Motion Ankle and Foot ROM Limitations Comments Ankle ROM B is normal, not pushed d/t likely ligamentous injury and instability from injuries PT-OP-M Strength Start: 01/05/20 07:24 Freq: Status: Active Protocol: Document 01/05/20 10:30 MB (Rec: 01/05/20 14:14 MB [id number]) Hip Strength Hip Manual Muscle Testing Left Flexion (L2) 4 Good Abduction 3+ Fair+ Right Flexion (L2) 4 Good Abduction 3+ Fair+ Knee Strength Knee Manual Muscle Testing Left Flexion (S2) 5 Normal Extension (L3) 5 Normal Right Flexion (S2) 4 Good Extension (L3) 5 Normal Ankle/Foot Strength Ankle and Foot Manual Muscle Testing Left Dorsiflexion (L4) 5 Normal Inversion 5 Normal Eversion (S1) 4 Good Comments Pt is able to perform at least 20 heel raises with wall support Right Dorsiflexion (L4) 5 Normal Inversion 4 Good Eversion (S1) 4 Good Comments Pt is able to perform 5 heel raises with wall support PT-OP-Q Treatments Start: 01/05/20 07:24 Freq: Status: Active Protocol: Document 01/22/20 12:15 MB (Rec: 01/22/20 15:01 MB [id number]) Cardio Equipment Recumbent Stepper (Sci-Fit) Duration (Minutes) 10 Resistance 1 Manual Therapy Treatment Other Other Manual Treatments RLE: STM fibularis longus and medial soleus A/P and P/A talocrural glides, grade III, pt supine for AP and prone for PA mobs A/P mobs metatarsals 1-5, grade II-III, pt in supine, grade II tarsal mobs Side lying for medial talocrural AP glides and for talocrural AP glides. Pt with increased tension across her tarsals and increased myofascial tension left calf musculature. PT-OP-T Assessment and Plan Start: 01/05/20 07:24 Freq: Status: Active Protocol: Document 01/22/20 12:15 MB (Rec: 01/22/20 12:59 MB [id number]) Physical Therapy Assessment Rehab Potential Rehabilitation Potential Fair Evaluation Complexity Number of Personal Factors/Comorbidities 1-2 Number of Body Systems Impaired 1-2 Clinical Presentation at Evaluation Evolving Impairments Impairments Activity Tolerance,Balance, Edema,Functional Activities, Functional Mobility,Gait, Integument,Pain,Posture,Soft Tissue Mobility,Strength Goals 4 Senior Care Goal (LTG) Pt will perform at least 20 reps heel raises right ankle with wall support to indicate improved PF strength and ankle stability by 03/06/2020. LTG Duration 8 weeks 3 Strawberry Grower Goal (LTG) Pt will perform progressive HEP with I including strengthening, postural and balance exercises to decrease pain and improve ankle stability by 03/06/2020. LTG Duration 8 weeks 2 Strawberry Grower Goal (LTG) Pt will perform WNLs on a standardized balance test to decrease fall risk by 2020. LTG Duration 8 weeks 1 Impairment LEF score reflects 25% impairment Strawberry Grower Goal (LTG) Pt will present with an improved LEF score to reflect no more than 20% impairment to allow return to hiking by . LTG Duration 8 weeks Assessment Summary Assessment Pt presents with increased tension left tarsals and rearfoot and she responds well to gentle mobs today. Left calf with increased tension medial soleus and fibularis longus and pt responds well to STM. Progress strengthening and balance exercises and con' t manual work. Physical Therapy Plan Frequency and Duration Frequency of Treatment 2x/Week Duration of Treatment 8 weeks Plan of Care Start Date 01/05/20 Plan of Care End Date 03/08/20 Therapeutic Interventions Therapeutic Interventions Balance Training,Canalithic Repositioning,Gait Training, Home Exercise Program,Joint Mobilizations,Manual Therapy, Neuromuscular Re-education, Patient/Caregiver Education, Self-Care/Home Management, Sensory Integration,Soft Tissue Mobilization,Taping, Therapeutic Activities, Therapeutic Exercises Modalities Cold Pack/Ice Massage,Electric Stimulation,Hot Packs, Ultrasound Next Visit Focus/Plan Next Note Type Treatment Note Next Visit Plan Progress strengthening exercises, consider standing strengthening exercises with band for hip extensors and abductors
--- NOTE | 2020-01-27 08:56 | PT.OTN ---
Current Diagnoses Sprain of unspecified ligament of right ankle, initial encounter (01/27/20) Physical Therapy Treatment Note PT-OP-A Visit Information Start: 01/05/20 07:24 Freq: Status: Active Protocol: Document 01/27/20 08:15 MB (Rec: 01/27/20 08:55 MB [id number]) Out-Patient Physical Therapy Visit Information Visit Information Visit Type Treatment Note Visit Start Time 08:15 Visit Stop Time 08:54 Total Visit Minutes 39 Visit Number 5 PT-OP-B Current Condition Start: 01/05/20 07:24 Freq: Status: Active Protocol: Document 01/05/20 10:30 MB (Rec: 01/05/20 10:43 MB [id number]) Current Condition History of Current Condition Onset Date August 2017 Current Complaints Pain in the right ankle History of Current Condition Pt reports that in August 2017, she was hiking and stepped in a hole and twisted her ankle. She had x-rays and MRI and they were negative. She was given an ASO. They recommended PT at that time. She did not have PT. She reports pain in the anterolateral ankle and that she has a lot of swelling . She rates pain up to 8/10 at times. She has pain with doing the laundry when she has to go up and down the stairs. She has trouble doing inclines. She wears her ASO and boots when hiking. Recently, she went back to [place] to help her kids move and she was at the dump. She was turning to throw stuff out and she twisted on her right. She had constant pain since that time That was in September 2019. When she was younger, she did martial arts and her ankles used to swell up. She had arthroscopic surgery and was told that she might need further surgery and her mother declined. The ankles feel weak. Prior Treatments and Tests X-ray right ankle 12/05/2019: NAD Treatment Goals Patient/Caregiver Goals To strengthen and walk without fear PT-OP-C Subjective Start: 01/05/20 07:24 Freq: Status: Active Protocol: Document 01/27/20 08:15 MB (Rec: 01/27/20 08:55 MB [id number]) OP-PT Subjective Patient Comments Patient Comments I'm feeling a lot better. Pt states that she was able to walk at [facility] yesterday and get on the logs. She is riding stationary bike at home and is doing better walking up the hill. Her right foot flexing going down the steps is still a problem. Pt had a fall over curb step and landed on her hands and knees last week. She has bruises and is feeling better. PT-OP-D Balance Start: 01/05/20 07:24 Freq: Status: Active Protocol: Document 01/05/20 10:30 MB (Rec: 01/05/20 14:14 MB [id number]) Balance Tests Romberg Romberg Normal EO and EC Tandem Tandem Standing Left behind at least 30 sec; reaches for opposite posit PT-OP-G Mobility & Gait Start: 01/05/20 07:24 Freq: Status: Active Protocol: Document 01/05/20 10:30 MB (Rec: 01/05/20 14:14 MB [id number]) OP Gait Assessment Gait Gait Assistance Required: Independent Distance (Feet) 75 Assistive Devices Assistive Device None Orthotic/Prosthetic Devices or Brace: Yes Gait Deviations General Gait Pattern Antalgic,Decreased Stride Length,Decreased Feet Clearance,Lateral Trunk Lean, Wide Based Gait Factors Limiting Gait Function Factors Limiting Gait Function Decreased Strength,Pain,Poor Balance Comments Gait Comments Pt presents with increased lateral trunk movement B with gait and after PT assessment, presents with decreased heel strike on the right foot with toe touch gait with weight acceptance and push off. Note, she wears ASO on right foot upon arrival and walks without it after assessment. PT-OP-J Posture/Palpation/Skin Start: 01/05/20 07:24 Freq: Status: Active Protocol: Document 01/05/20 10:30 MB (Rec: 01/05/20 14:14 MB [id number]) Skin Assessment Other Assessments Skin Assessment Comments Standing posture: increased body mass, greater over hips/ LEs, decreased thoracic kyphosis, increased lumbar lordosis, increased supination left foot and increased WB through right great toe, right shoulder and right iliac crest higher than the left. Pt presents with some edema around the right ankle. PT-OP-K Range of Motion Start: 01/05/20 07:24 Freq: Status: Active Protocol: Document 01/05/20 10:30 MB (Rec: 01/05/20 14:14 MB [id number]) Ankle and Foot Goniometric Range of Motion Ankle and Foot ROM Limitations Comments Ankle ROM B is normal, not pushed d/t likely ligamentous injury and instability from injuries PT-OP-M Strength Start: 01/05/20 07:24 Freq: Status: Active Protocol: Document 01/05/20 10:30 MB (Rec: 01/05/20 14:14 MB [id number]) Hip Strength Hip Manual Muscle Testing Left Flexion (L2) 4 Good Abduction 3+ Fair+ Right Flexion (L2) 4 Good Abduction 3+ Fair+ Knee Strength Knee Manual Muscle Testing Left Flexion (S2) 5 Normal Extension (L3) 5 Normal Right Flexion (S2) 4 Good Extension (L3) 5 Normal Ankle/Foot Strength Ankle and Foot Manual Muscle Testing Left Dorsiflexion (L4) 5 Normal Inversion 5 Normal Eversion (S1) 4 Good Comments Pt is able to perform at least 20 heel raises with wall support Right Dorsiflexion (L4) 5 Normal Inversion 4 Good Eversion (S1) 4 Good Comments Pt is able to perform 5 heel raises with wall support PT-OP-Q Treatments Start: 01/05/20 07:24 Freq: Status: Active Protocol: Document 01/27/20 08:15 MB (Rec: 01/27/20 08:55 MB [id number]) Manual Therapy Treatment Other Other Manual Treatments Pt agrees to Counterstrain to assess and treat fascial tightness and pt presents with tension in right tibial and subtalar joint, periosteal fascia and PT treats end plate stacks. PT treats lumbar LF stacks. Tight LF and left posterior sympathetic and DPR scans improve after end plate periosteal treatment PT-OP-T Assessment and Plan Start: 01/05/20 07:24 Freq: Status: Active Protocol: Document 01/27/20 08:15 MB (Rec: 01/27/20 08:55 MB [id number]) Physical Therapy Assessment Rehab Potential Rehabilitation Potential Fair Evaluation Complexity Number of Personal Factors/Comorbidities 1-2 Number of Body Systems Impaired 1-2 Clinical Presentation at Evaluation Evolving Impairments Impairments Activity Tolerance,Balance, Edema,Functional Activities, Functional Mobility,Gait, Integument,Pain,Posture,Soft Tissue Mobility,Strength Goals 4 Residential Goal (LTG) Pt will perform at least 20 reps heel raises right ankle with wall support to indicate improved PF strength and ankle stability by 03/06/2020. LTG Duration 8 weeks 3 Microstrategy Architect Goal (LTG) Pt will perform progressive HEP with I including strengthening, postural and balance exercises to decrease pain and improve ankle stability by 03/06/2020. LTG Duration 8 weeks 2 Microstrategy Architect Goal (LTG) Pt will perform WNLs on a standardized balance test to decrease fall risk by 2020. LTG Duration 8 weeks 1 Impairment LEF score reflects 25% impairment Microstrategy Architect Goal (LTG) Pt will present with an improved LEF score to reflect no more than 20% impairment to allow return to hiking by . LTG Duration 8 weeks Assessment Summary Assessment Counterstrain today to treat periosteal tension and her right subtalar joint and tibia move better after treatment. Con't to monitor response. Progress strengthening. Physical Therapy Plan Frequency and Duration Frequency of Treatment 2x/Week Duration of Treatment 8 weeks Plan of Care Start Date 01/05/20 Plan of Care End Date 03/08/20 Therapeutic Interventions Therapeutic Interventions Balance Training,Canalithic Repositioning,Gait Training, Home Exercise Program,Joint Mobilizations,Manual Therapy, Neuromuscular Re-education, Patient/Caregiver Education, Self-Care/Home Management, Sensory Integration,Soft Tissue Mobilization,Taping, Therapeutic Activities, Therapeutic Exercises Modalities Cold Pack/Ice Massage,Electric Stimulation,Hot Packs, Ultrasound Next Visit Focus/Plan Next Note Type Treatment Note Next Visit Plan Progress strengthening exercises, consider standing strengthening exercises with band for hip extensors and abductors
--- NOTE | 2020-02-02 09:46 | PT.OTN ---
Current Diagnoses Sprain of unspecified ligament of right ankle, initial encounter (02/02/20) Physical Therapy Treatment Note PT-OP-A Visit Information Start: 01/05/20 07:24 Freq: Status: Active Protocol: Document 02/02/20 09:08 SP (Rec: 02/02/20 11:37 SP [id number]) Out-Patient Physical Therapy Visit Information Visit Information Visit Type Treatment Note Visit Note Pt 8 min late for appt today. Visit Start Time 09:08 Visit Stop Time 09:46 Total Visit Minutes 38 Visit Number 6 Number of ASSISTANT CREDIT MANAGER Visits 1 PT-OP-B Current Condition Start: 01/05/20 07:24 Freq: Status: Active Protocol: Document 01/05/20 10:30 MB (Rec: 01/05/20 10:43 MB [id number]) Current Condition History of Current Condition Onset Date August 2017 Current Complaints Pain in the right ankle History of Current Condition Pt reports that in August 2017, she was hiking and stepped in a hole and twisted her ankle. She had x-rays and MRI and they were negative. She was given an ASO. They recommended PT at that time. She did not have PT. She reports pain in the anterolateral ankle and that she has a lot of swelling . She rates pain up to 8/10 at times. She has pain with doing the laundry when she has to go up and down the stairs. She has trouble doing inclines. She wears her ASO and boots when hiking. Recently, she went back to [place] to help her kids move and she was at the dump. She was turning to throw stuff out and she twisted on her right. She had constant pain since that time That was in September 2019. When she was younger, she did martial arts and her ankles used to swell up. She had arthroscopic surgery and was told that she might need further surgery and her mother declined. The ankles feel weak. Prior Treatments and Tests X-ray right ankle 12/05/2019: NAD Treatment Goals Patient/Caregiver Goals To strengthen and walk without fear PT-OP-C Subjective Start: 01/05/20 07:24 Freq: Status: Active Protocol: Document 02/02/20 09:08 SP (Rec: 02/02/20 11:37 SP [id number]) OP-PT Subjective Patient Comments Patient Comments Pt reported was sore in R ankle after last tx for about 1/2 hr then ok. Feels the exercises are helping and having good competition with dad using upright bike at home , wants to get a wider seat. Patient Reported Progress Improving PT-OP-D Balance Start: 01/05/20 07:24 Freq: Status: Active Protocol: Document 01/05/20 10:30 MB (Rec: 01/05/20 14:14 MB [id number]) Balance Tests Romberg Romberg Normal EO and EC Tandem Tandem Standing Left behind at least 30 sec; reaches for opposite posit PT-OP-G Mobility & Gait Start: 01/05/20 07:24 Freq: Status: Active Protocol: Document 01/05/20 10:30 MB (Rec: 01/05/20 14:14 MB [id number]) OP Gait Assessment Gait Gait Assistance Required: Independent Distance (Feet) 75 Assistive Devices Assistive Device None Orthotic/Prosthetic Devices or Brace: Yes Gait Deviations General Gait Pattern Antalgic,Decreased Stride Length,Decreased Feet Clearance,Lateral Trunk Lean, Wide Based Gait Factors Limiting Gait Function Factors Limiting Gait Function Decreased Strength,Pain,Poor Balance Comments Gait Comments Pt presents with increased lateral trunk movement B with gait and after PT assessment, presents with decreased heel strike on the right foot with toe touch gait with weight acceptance and push off. Note, she wears ASO on right foot upon arrival and walks without it after assessment. PT-OP-J Posture/Palpation/Skin Start: 01/05/20 07:24 Freq: Status: Active Protocol: Document 01/05/20 10:30 MB (Rec: 01/05/20 14:14 MB [id number]) Skin Assessment Other Assessments Skin Assessment Comments Standing posture: increased body mass, greater over hips/ LEs, decreased thoracic kyphosis, increased lumbar lordosis, increased supination left foot and increased WB through right great toe, right shoulder and right iliac crest higher than the left. Pt presents with some edema around the right ankle. PT-OP-K Range of Motion Start: 01/05/20 07:24 Freq: Status: Active Protocol: Document 01/05/20 10:30 MB (Rec: 01/05/20 14:14 MB [id number]) Ankle and Foot Goniometric Range of Motion Ankle and Foot ROM Limitations Comments Ankle ROM B is normal, not pushed d/t likely ligamentous injury and instability from injuries PT-OP-M Strength Start: 01/05/20 07:24 Freq: Status: Active Protocol: Document 01/05/20 10:30 MB (Rec: 01/05/20 14:14 MB [id number]) Hip Strength Hip Manual Muscle Testing Left Flexion (L2) 4 Good Abduction 3+ Fair+ Right Flexion (L2) 4 Good Abduction 3+ Fair+ Knee Strength Knee Manual Muscle Testing Left Flexion (S2) 5 Normal Extension (L3) 5 Normal Right Flexion (S2) 4 Good Extension (L3) 5 Normal Ankle/Foot Strength Ankle and Foot Manual Muscle Testing Left Dorsiflexion (L4) 5 Normal Inversion 5 Normal Eversion (S1) 4 Good Comments Pt is able to perform at least 20 heel raises with wall support Right Dorsiflexion (L4) 5 Normal Inversion 4 Good Eversion (S1) 4 Good Comments Pt is able to perform 5 heel raises with wall support PT-OP-Q Treatments Start: 01/05/20 07:24 Freq: Status: Active Protocol: Document 02/02/20 09:08 SP (Rec: 02/02/20 11:37 SP [id number]) Cardio Equipment Recumbent Elliptical (Biodex) Duration (Minutes) 6 Resistance 1 Seat Position 8 Other 609 steps/6 min Gym Equipment Sport Cord green Exercise Details f/b/s Cord/Resistance green Reps/Duration 5 steps x2 laps each Comments cued glut and core facilitation to allow increase ankle stability with each slow transition step each direction with education on carry over walking. Therapeutic Exercises Standing Exercises eccentric calf raises Equipment Used contact rail Reps/Minutes 2x10 Comments cued slow ankle neutral pos muscular control band walk Standing Exercise Name f/b/side stepping Resistance TB #1 Reps/Minutes 20 ft x3 laps Comments cued upright posture, core & glut facilitation and eccentric trail control SLS Side bilateral Reps/Minutes R 23 , 30 +; L 12 , 30 + Comments cued glut, core facilitation with COG over EMILY stability PT-OP-T Assessment and Plan Start: 01/05/20 07:24 Freq: Status: Active Protocol: Document 02/02/20 09:08 SP (Rec: 02/02/20 11:37 SP [id number]) Physical Therapy Assessment Goals 4 Halfway Goal (LTG) Pt will perform at least 20 reps heel raises right ankle with wall support to indicate improved PF strength and ankle stability by 03/06/2020. LTG Duration 8 weeks 3 Halfway Goal (LTG) Pt will perform progressive HEP with I including strengthening, postural and balance exercises to decrease pain and improve ankle stability by 03/06/2020. LTG Duration 8 weeks 2 Halfway Goal (LTG) Pt will perform WNLs on a standardized balance test to decrease fall risk by 2020. LTG Duration 8 weeks 1 Impairment LEF score reflects 25% impairment Tea Bag Machine Tender Goal (LTG) Pt will present with an improved LEF score to reflect no more than 20% impairment to allow return to hiking by . LTG Duration 8 weeks Assessment Summary Assessment Pt improved ankle stability wiht cuing for glut and core facilitation with each slow transition step each direction with awareness education on carry over walking, improvement end of tx. No pain end of tx and felt a good focus today. Physical Therapy Plan Frequency and Duration Frequency of Treatment 2x/Week Duration of Treatment 8 weeks Plan of Care Start Date 01/05/20 Plan of Care End Date 03/08/20 Therapeutic Interventions Therapeutic Interventions Balance Training,Canalithic Repositioning,Gait Training, Home Exercise Program,Joint Mobilizations,Manual Therapy, Neuromuscular Re-education, Patient/Caregiver Education, Self-Care/Home Management, Sensory Integration,Soft Tissue Mobilization,Taping, Therapeutic Activities, Therapeutic Exercises Modalities Cold Pack/Ice Massage,Electric Stimulation,Hot Packs, Ultrasound Next Visit Focus/Plan Next Note Type Treatment Note Next Visit Plan Assess last tx: band walk, SLS , calf raises off step, dynamic sport cord. Next tx: continue counterstrain as needed and review HEP. Continue per PT POC: Progress strengthening exercises, consider standing strengthening exercises with band for hip extensors and abductors
--- NOTE | 2020-02-04 13:03 | PT.OTN ---
Addendum entered and electronically signed by Arely Rubio, PT 02/09/20 08:13: Send to Dr. Bolaños Original Note: Current Diagnoses Sprain of unspecified ligament of right ankle, initial encounter (02/04/20) Physical Therapy Treatment Note PT-OP-A Visit Information Start: 01/05/20 07:24 Freq: Status: Active Protocol: Document 02/04/20 12:16 MB (Rec: 02/04/20 13:01 MB [id number]) Out-Patient Physical Therapy Visit Information Visit Information Visit Type Treatment Note Visit Start Time 12:16 Visit Stop Time 13:00 Total Visit Minutes 44 Visit Number 7 PT-OP-B Current Condition Start: 01/05/20 07:24 Freq: Status: Active Protocol: Document 01/05/20 10:30 MB (Rec: 01/05/20 10:43 MB [id number]) Current Condition History of Current Condition Onset Date August 2017 Current Complaints Pain in the right ankle History of Current Condition Pt reports that in August 2017, she was hiking and stepped in a hole and twisted her ankle. She had x-rays and MRI and they were negative. She was given an ASO. They recommended PT at that time. She did not have PT. She reports pain in the anterolateral ankle and that she has a lot of swelling . She rates pain up to 8/10 at times. She has pain with doing the laundry when she has to go up and down the stairs. She has trouble doing inclines. She wears her ASO and boots when hiking. Recently, she went back to [place] to help her kids move and she was at the dump. She was turning to throw stuff out and she twisted on her right. She had constant pain since that time That was in September 2019. When she was younger, she did martial arts and her ankles used to swell up. She had arthroscopic surgery and was told that she might need further surgery and her mother declined. The ankles feel weak. Prior Treatments and Tests X-ray right ankle 12/05/2019: NAD Treatment Goals Patient/Caregiver Goals To strengthen and walk without fear PT-OP-C Subjective Start: 01/05/20 07:24 Freq: Status: Active Protocol: Document 02/04/20 12:16 MB (Rec: 02/04/20 13:01 MB [id number]) OP-PT Subjective Patient Comments Patient Comments It does feel stronger. Pt states that she is going for walks and using the stationary bike more. She likes her exercises. PT-OP-D Balance Start: 01/05/20 07:24 Freq: Status: Active Protocol: Document 01/05/20 10:30 MB (Rec: 01/05/20 14:14 MB [id number]) Balance Tests Romberg Romberg Normal EO and EC Tandem Tandem Standing Left behind at least 30 sec; reaches for opposite posit PT-OP-G Mobility & Gait Start: 01/05/20 07:24 Freq: Status: Active Protocol: Document 01/05/20 10:30 MB (Rec: 01/05/20 14:14 MB [id number]) OP Gait Assessment Gait Gait Assistance Required: Independent Distance (Feet) 75 Assistive Devices Assistive Device None Orthotic/Prosthetic Devices or Brace: Yes Gait Deviations General Gait Pattern Antalgic,Decreased Stride Length,Decreased Feet Clearance,Lateral Trunk Lean, Wide Based Gait Factors Limiting Gait Function Factors Limiting Gait Function Decreased Strength,Pain,Poor Balance Comments Gait Comments Pt presents with increased lateral trunk movement B with gait and after PT assessment, presents with decreased heel strike on the right foot with toe touch gait with weight acceptance and push off. Note, she wears ASO on right foot upon arrival and walks without it after assessment. PT-OP-J Posture/Palpation/Skin Start: 01/05/20 07:24 Freq: Status: Active Protocol: Document 01/05/20 10:30 MB (Rec: 01/05/20 14:14 MB [id number]) Skin Assessment Other Assessments Skin Assessment Comments Standing posture: increased body mass, greater over hips/ LEs, decreased thoracic kyphosis, increased lumbar lordosis, increased supination left foot and increased WB through right great toe, right shoulder and right iliac crest higher than the left. Pt presents with some edema around the right ankle. PT-OP-K Range of Motion Start: 01/05/20 07:24 Freq: Status: Active Protocol: Document 01/05/20 10:30 MB (Rec: 01/05/20 14:14 MB [id number]) Ankle and Foot Goniometric Range of Motion Ankle and Foot ROM Limitations Comments Ankle ROM B is normal, not pushed d/t likely ligamentous injury and instability from injuries PT-OP-M Strength Start: 01/05/20 07:24 Freq: Status: Active Protocol: Document 01/05/20 10:30 MB (Rec: 01/05/20 14:14 MB [id number]) Hip Strength Hip Manual Muscle Testing Left Flexion (L2) 4 Good Abduction 3+ Fair+ Right Flexion (L2) 4 Good Abduction 3+ Fair+ Knee Strength Knee Manual Muscle Testing Left Flexion (S2) 5 Normal Extension (L3) 5 Normal Right Flexion (S2) 4 Good Extension (L3) 5 Normal Ankle/Foot Strength Ankle and Foot Manual Muscle Testing Left Dorsiflexion (L4) 5 Normal Inversion 5 Normal Eversion (S1) 4 Good Comments Pt is able to perform at least 20 heel raises with wall support Right Dorsiflexion (L4) 5 Normal Inversion 4 Good Eversion (S1) 4 Good Comments Pt is able to perform 5 heel raises with wall support PT-OP-Q Treatments Start: 01/05/20 07:24 Freq: Status: Active Protocol: Document 02/04/20 12:16 MB (Rec: 02/04/20 13:01 MB [id number]) Manual Therapy Treatment Other Other Manual Treatments Pt agrees to Counterstrain to assess and treat fascial tension and pt presents with tension in right vagus, right visceral, B LV spinal medullaries and right anterior somatic nerves. PT treats stacks in the following fascial system: vagus nerve proximal to distal. Pt points to her bladder as far as where her pain has been (and not her liver where she was told her mass is) PT-OP-T Assessment and Plan Start: 01/05/20 07:24 Freq: Status: Active Protocol: Document 02/04/20 12:16 MB (Rec: 02/04/20 13:01 MB [id number]) Physical Therapy Assessment Rehab Potential Rehabilitation Potential Fair Evaluation Complexity Number of Personal Factors/Comorbidities 1-2 Number of Body Systems Impaired 1-2 Clinical Presentation at Evaluation Evolving Impairments Impairments Activity Tolerance,Balance, Edema,Functional Activities, Functional Mobility,Gait, Integument,Pain,Posture,Soft Tissue Mobility,Strength Goals 4 Virtualization Architect Goal (LTG) Pt will perform at least 20 reps heel raises right ankle with wall support to indicate improved PF strength and ankle stability by 03/06/2020. LTG Duration 8 weeks 3 Fdc Goal (LTG) Pt will perform progressive HEP with I including strengthening, postural and balance exercises to decrease pain and improve ankle stability by 03/06/2020. LTG Duration 8 weeks 2 Virtualization Architect Goal (LTG) Pt will perform WNLs on a standardized balance test to decrease fall risk by 2020. LTG Duration 8 weeks 1 Impairment LEF score reflects 25% impairment Virtualization Architect Goal (LTG) Pt will present with an improved LEF score to reflect no more than 20% impairment to allow return to hiking by . LTG Duration 8 weeks Assessment Summary Assessment Pt agrees to Counterstrain today to further assess and treat fascial tension. She scans vagus nerve, right viscera and LV spinal medullaries. Pt states that she just found out she has a mass on liver and left lung and will go for further testing. Fascial treatment today to promote LE/ankle range. Of note, pt points to the right side of her bladder for her pain spot, not her liver. It does have tension. Con't PT per POC. Physical Therapy Plan Frequency and Duration Frequency of Treatment 2x/Week Duration of Treatment 8 weeks Plan of Care Start Date 01/05/20 Plan of Care End Date 03/08/20 Therapeutic Interventions Therapeutic Interventions Balance Training,Canalithic Repositioning,Gait Training, Home Exercise Program,Joint Mobilizations,Manual Therapy, Neuromuscular Re-education, Patient/Caregiver Education, Self-Care/Home Management, Sensory Integration,Soft Tissue Mobilization,Taping, Therapeutic Activities, Therapeutic Exercises Modalities Cold Pack/Ice Massage,Electric Stimulation,Hot Packs, Ultrasound Next Visit Focus/Plan Next Note Type Treatment Note Next Visit Plan As previous: band walk, SLS, calf raises off step, dynamic sport cord.
--- NOTE | 2020-02-09 08:12 | PT.OTN ---
Current Diagnoses Sprain of unspecified ligament of right ankle, initial encounter (02/09/20) Physical Therapy Treatment Note PT-OP-A Visit Information Start: 01/05/20 07:24 Freq: Status: Active Protocol: Document 02/09/20 07:32 MB (Rec: 02/09/20 08:11 MB [id number]) Out-Patient Physical Therapy Visit Information Visit Information Visit Type Treatment Note Visit Start Time 07:32 Visit Stop Time 08:12 Total Visit Minutes 40 Visit Number 8 PT-OP-B Current Condition Start: 01/05/20 07:24 Freq: Status: Active Protocol: Document 01/05/20 10:30 MB (Rec: 01/05/20 10:43 MB [id number]) Current Condition History of Current Condition Onset Date August 2017 Current Complaints Pain in the right ankle History of Current Condition Pt reports that in August 2017, she was hiking and stepped in a hole and twisted her ankle. She had x-rays and MRI and they were negative. She was given an ASO. They recommended PT at that time. She did not have PT. She reports pain in the anterolateral ankle and that she has a lot of swelling . She rates pain up to 8/10 at times. She has pain with doing the laundry when she has to go up and down the stairs. She has trouble doing inclines. She wears her ASO and boots when hiking. Recently, she went back to [place] to help her kids move and she was at the [place]. She was turning to throw stuff out and she twisted on her right. She had constant pain since that time That was in September 2019. When she was younger, she did martial arts and her ankles used to swell up. She had arthroscopic surgery and was told that she might need further surgery and her mother declined. The ankles feel weak. Prior Treatments and Tests X-ray right ankle 12/05/2019: NAD Treatment Goals Patient/Caregiver Goals To strengthen and walk without fear PT-OP-C Subjective Start: 01/05/20 07:24 Freq: Status: Active Protocol: Document 02/09/20 07:32 MB (Rec: 02/09/20 08:11 MB [id number]) OP-PT Subjective Patient Comments Patient Comments We've increased our walks. I get that pain in the front of my right hip when I sit a long time. PT-OP-D Balance Start: 01/05/20 07:24 Freq: Status: Active Protocol: Document 01/05/20 10:30 MB (Rec: 01/05/20 14:14 MB [id number]) Balance Tests Romberg Romberg Normal EO and EC Tandem Tandem Standing Left behind at least 30 sec; reaches for opposite posit PT-OP-G Mobility & Gait Start: 01/05/20 07:24 Freq: Status: Active Protocol: Document 01/05/20 10:30 MB (Rec: 01/05/20 14:14 MB [id number]) OP Gait Assessment Gait Gait Assistance Required: Independent Distance (Feet) 75 Assistive Devices Assistive Device None Orthotic/Prosthetic Devices or Brace: Yes Gait Deviations General Gait Pattern Antalgic,Decreased Stride Length,Decreased Feet Clearance,Lateral Trunk Lean, Wide Based Gait Factors Limiting Gait Function Factors Limiting Gait Function Decreased Strength,Pain,Poor Balance Comments Gait Comments Pt presents with increased lateral trunk movement B with gait and after PT assessment, presents with decreased heel strike on the right foot with toe touch gait with weight acceptance and push off. Note, she wears ASO on right foot upon arrival and walks without it after assessment. PT-OP-J Posture/Palpation/Skin Start: 01/05/20 07:24 Freq: Status: Active Protocol: Document 01/05/20 10:30 MB (Rec: 01/05/20 14:14 MB [id number]) Skin Assessment Other Assessments Skin Assessment Comments Standing posture: increased body mass, greater over hips/ LEs, decreased thoracic kyphosis, increased lumbar lordosis, increased supination left foot and increased WB through right great toe, right shoulder and right iliac crest higher than the left. Pt presents with some edema around the right ankle. PT-OP-K Range of Motion Start: 01/05/20 07:24 Freq: Status: Active Protocol: Document 01/05/20 10:30 MB (Rec: 01/05/20 14:14 MB [id number]) Ankle and Foot Goniometric Range of Motion Ankle and Foot ROM Limitations Comments Ankle ROM B is normal, not pushed d/t likely ligamentous injury and instability from injuries PT-OP-M Strength Start: 01/05/20 07:24 Freq: Status: Active Protocol: Document 01/05/20 10:30 MB (Rec: 01/05/20 14:14 MB [id number]) Hip Strength Hip Manual Muscle Testing Left Flexion (L2) 4 Good Abduction 3+ Fair+ Right Flexion (L2) 4 Good Abduction 3+ Fair+ Knee Strength Knee Manual Muscle Testing Left Flexion (S2) 5 Normal Extension (L3) 5 Normal Right Flexion (S2) 4 Good Extension (L3) 5 Normal Ankle/Foot Strength Ankle and Foot Manual Muscle Testing Left Dorsiflexion (L4) 5 Normal Inversion 5 Normal Eversion (S1) 4 Good Comments Pt is able to perform at least 20 heel raises with wall support Right Dorsiflexion (L4) 5 Normal Inversion 4 Good Eversion (S1) 4 Good Comments Pt is able to perform 5 heel raises with wall support PT-OP-Q Treatments Start: 01/05/20 07:24 Freq: Status: Active Protocol: Document 02/09/20 07:32 MB (Rec: 02/09/20 08:11 MB [id number]) Therapeutic Exercises Supine Exercises Core engagement progression Supine Exercise Name HS today, abd drawing in Side bilateral Comments 5 reps slowly, B, core engaged Pelvic realignment exercises Side bilateral Comments 5 reps, 3 sec hold all exercises Jose Juan stretch with core engagement Side bilateral Comments 1' each, core engagement cued Standing Exercises Standing doorway hip flexor stretch Side bilateral Comments 25 sec with cues for positioning band walk Standing Exercise Name D/c forward walking d/t hip flexor discomfort Other Exercises Therapy ball Equipment Used 65 cm ball preferred over 55 cm Comments 65 cm better position, bouncing, pelvic rocking PT-OP-T Assessment and Plan Start: 01/05/20 07:24 Freq: Status: Active Protocol: Document 02/09/20 07:32 MB (Rec: 02/09/20 08:11 MB [id number]) Physical Therapy Assessment Rehab Potential Rehabilitation Potential Fair Evaluation Complexity Number of Personal Factors/Comorbidities 1-2 Number of Body Systems Impaired 1-2 Clinical Presentation at Evaluation Evolving Impairments Impairments Activity Tolerance,Balance, Edema,Functional Activities, Functional Mobility,Gait, Integument,Pain,Posture,Soft Tissue Mobility,Strength Goals 4 Brand Engineer Goal (LTG) Pt will perform at least 20 reps heel raises right ankle with wall support to indicate improved PF strength and ankle stability by 03/06/2020. LTG Duration 8 weeks 3 Brand Engineer Goal (LTG) Pt will perform progressive HEP with I including strengthening, postural and balance exercises to decrease pain and improve ankle stability by 03/06/2020. LTG Duration 8 weeks 2 Brand Engineer Goal (LTG) Pt will perform WNLs on a standardized balance test to decrease fall risk by 2020. LTG Duration 8 weeks 1 Impairment LEF score reflects 25% impairment Intermediate Goal (LTG) Pt will present with an improved LEF score to reflect no more than 20% impairment to allow return to hiking by . LTG Duration 8 weeks Assessment Summary Assessment Ed pt to stop sitting in painful chair in living room and consider therapy ball. This date, focused on pelvic realignment exercises, hip flexor flexibility, core engagement. Pt is waiting to hear about CT finidings for her liver. Once again, pt's pain is at her right hip flexor area and the viscera in that area are more ovary and perhaps bladder. Physical Therapy Plan Frequency and Duration Frequency of Treatment 2x/Week Duration of Treatment 8 weeks Plan of Care Start Date 01/05/20 Plan of Care End Date 03/08/20 Therapeutic Interventions Therapeutic Interventions Balance Training,Canalithic Repositioning,Gait Training, Home Exercise Program,Joint Mobilizations,Manual Therapy, Neuromuscular Re-education, Patient/Caregiver Education, Self-Care/Home Management, Sensory Integration,Soft Tissue Mobilization,Taping, Therapeutic Activities, Therapeutic Exercises Modalities Cold Pack/Ice Massage,Electric Stimulation,Hot Packs, Ultrasound Next Visit Focus/Plan Next Note Type Treatment Note Next Visit Plan Con't to review and revise HEP as appropriate, consider core exercises and pelvic realignment exercises, hip extension
--- NOTE | 2020-02-18 15:01 | PT.OTN ---
Current Diagnoses Sprain of unspecified ligament of right ankle, initial encounter (02/18/20) Physical Therapy Treatment Note PT-OP-A Visit Information Start: 01/05/20 07:24 Freq: Status: Active Protocol: Document 02/18/20 09:47 MB (Rec: 02/18/20 10:25 MB [id number]) Out-Patient Physical Therapy Visit Information Visit Information Visit Type Progress Note Visit Start Time 09:47 Visit Stop Time 10:27 Total Visit Minutes 40 Visit Number 9 PT-OP-B Current Condition Start: 01/05/20 07:24 Freq: Status: Active Protocol: Document 01/05/20 10:30 MB (Rec: 01/05/20 10:43 MB [id number]) Current Condition History of Current Condition Onset Date August 2017 Current Complaints Pain in the right ankle History of Current Condition Pt reports that in August 2017, she was hiking and stepped in a hole and twisted her ankle. She had x-rays and MRI and they were negative. She was given an ASO. They recommended PT at that time. She did not have PT. She reports pain in the anterolateral ankle and that she has a lot of swelling . She rates pain up to 8/10 at times. She has pain with doing the laundry when she has to go up and down the stairs. She has trouble doing inclines. She wears her ASO and boots when hiking. Recently, she went back to [place] to help her kids move and she was at the dump. She was turning to throw stuff out and she twisted on her right. She had constant pain since that time That was in September 2019. When she was younger, she did martial arts and her ankles used to swell up. She had arthroscopic surgery and was told that she might need further surgery and her mother declined. The ankles feel weak. Prior Treatments and Tests X-ray right ankle 12/05/2019: NAD Treatment Goals Patient/Caregiver Goals To strengthen and walk without fear PT-OP-C Subjective Start: 01/05/20 07:24 Freq: Status: Active Protocol: Document 02/18/20 09:47 MB (Rec: 02/18/20 10:25 MB [id number]) OP-PT Subjective Patient Comments Patient Comments Pt reports that she will have her appointment with Dr. Bolaños tomorrow. She was given a medication for her stomach. Pt reports that her exercises are good and she needs to get back into them. She has been down d/t her [place] trip was cancelled and she is concerned about the liver findings. Pt has been able to walk for exercise, up to 2 miles a day d/t the weather. PT-OP-D Balance Start: 01/05/20 07:24 Freq: Status: Active Protocol: Document 01/05/20 10:30 MB (Rec: 01/05/20 14:14 MB [id number]) Balance Tests Romberg Romberg Normal EO and EC Tandem Tandem Standing Left behind at least 30 sec; reaches for opposite posit PT-OP-G Mobility & Gait Start: 01/05/20 07:24 Freq: Status: Active Protocol: Document 01/05/20 10:30 MB (Rec: 01/05/20 14:14 MB [id number]) OP Gait Assessment Gait Gait Assistance Required: Independent Distance (Feet) 75 Assistive Devices Assistive Device None Orthotic/Prosthetic Devices or Brace: Yes Gait Deviations General Gait Pattern Antalgic,Decreased Stride Length,Decreased Feet Clearance,Lateral Trunk Lean, Wide Based Gait Factors Limiting Gait Function Factors Limiting Gait Function Decreased Strength,Pain,Poor Balance Comments Gait Comments Pt presents with increased lateral trunk movement B with gait and after PT assessment, presents with decreased heel strike on the right foot with toe touch gait with weight acceptance and push off. Note, she wears ASO on right foot upon arrival and walks without it after assessment. PT-OP-J Posture/Palpation/Skin Start: 01/05/20 07:24 Freq: Status: Active Protocol: Document 01/05/20 10:30 MB (Rec: 01/05/20 14:14 MB [id number]) Skin Assessment Other Assessments Skin Assessment Comments Standing posture: increased body mass, greater over hips/ LEs, decreased thoracic kyphosis, increased lumbar lordosis, increased supination left foot and increased WB through right great toe, right shoulder and right iliac crest higher than the left. Pt presents with some edema around the right ankle. PT-OP-K Range of Motion Start: 01/05/20 07:24 Freq: Status: Active Protocol: Document 01/05/20 10:30 MB (Rec: 01/05/20 14:14 MB [id number]) Ankle and Foot Goniometric Range of Motion Ankle and Foot ROM Limitations Comments Ankle ROM B is normal, not pushed d/t likely ligamentous injury and instability from injuries PT-OP-M Strength Start: 01/05/20 07:24 Freq: Status: Active Protocol: Document 01/05/20 10:30 MB (Rec: 01/05/20 14:14 MB [id number]) Hip Strength Hip Manual Muscle Testing Left Flexion (L2) 4 Good Abduction 3+ Fair+ Right Flexion (L2) 4 Good Abduction 3+ Fair+ Knee Strength Knee Manual Muscle Testing Left Flexion (S2) 5 Normal Extension (L3) 5 Normal Right Flexion (S2) 4 Good Extension (L3) 5 Normal Ankle/Foot Strength Ankle and Foot Manual Muscle Testing Left Dorsiflexion (L4) 5 Normal Inversion 5 Normal Eversion (S1) 4 Good Comments Pt is able to perform at least 20 heel raises with wall support Right Dorsiflexion (L4) 5 Normal Inversion 4 Good Eversion (S1) 4 Good Comments Pt is able to perform 5 heel raises with wall support PT-OP-Q Treatments Start: 01/05/20 07:24 Freq: Status: Active Protocol: Document 02/18/20 09:47 MB (Rec: 02/18/20 15:00 MB [id number]) Therapeutic Exercises Supine Exercises Core engagement progression Comments Verbally reviewed abdominal drawing in and HS today with handout Jose Juan stretch with core engagement Comments Verbally reviewed with handout today Hamstring stretch with AP Comments Verbally reviewed with handout today Sitting Exercises Toe flexion/DF with band, foot hammock Comments Verbally reviewed with handout today Standing Exercises SLS Comments Performed today, 19 sec R, 21 sec L Gastroc and soleus stretched and then toe raises Comments Reviewed today using handouts Other Exercises Therapy ball Comments Pt sat on ball today, ed on 65 and 55 cm balls Neuro Re-Education Treatment Balance Activities FGA Comments FGA score 28/30 and pt only has trouble with tandem gait PT-OP-T Assessment and Plan Start: 01/05/20 07:24 Freq: Status: Active Protocol: Document 02/18/20 09:47 MB (Rec: 02/18/20 10:25 MB [id number]) Physical Therapy Assessment Rehab Potential Rehabilitation Potential Fair Evaluation Complexity Number of Personal Factors/Comorbidities 1-2 Number of Body Systems Impaired 1-2 Clinical Presentation at Evaluation Evolving Impairments Impairments Activity Tolerance,Balance, Edema,Functional Activities, Functional Mobility,Gait, Integument,Pain,Posture,Soft Tissue Mobility,Strength Goals 5 Intermediate Goal (LTG) Pt will perform B SLS for 30 sec to improve overall balance by 03/14/2020. 02/18/20: Right 19 sec; left 21 sec LTG Duration 4 weeks 4 Senior Solutions Consultant Goal (LTG) Pt will perform at least 20 reps heel raises right ankle with wall support to indicate improved PF strength and ankle stability by 03/06/2020. 02/18/20: Pt is able to perform 20 reps heel raises on the right today (pt performs on the left as well today) LTG Duration Met 3 Intermediate Goal (LTG) Pt will perform progressive HEP with I including strengthening, postural and balance exercises to decrease pain and improve ankle stability by 03/14/2020. 02/18/20: Pt reports that she was doing her exercises really well but she is down with the liver concerns and hasn't been performing as much LTG Duration 4 weeks 2 Senior Solutions Consultant Goal (LTG) Pt will perform WNLs on a standardized balance test to decrease fall risk by 2020. 02/18/20: Pt presents WNLs on FGA with only trouble with tandem walking LTG Duration Met 1 Impairment LEF score reflects 25% impairment Senior Solutions Consultant Goal (LTG) Pt will present with an improved LEF score to reflect no more than 15% impairment to allow return to hiking by . 02/18/20: LEF score improved and reflects 18.75% impairment LTG Duration 4 weeks Assessment Summary Assessment Pt has progressed towards all PT goals since starting PT and these include performance of HEP and LEF score. In fact, LEF goal was advanced today. She has met FGA score and ability to perform 20 reps heel raises. PT added a SLS goal. She will benefit from ongoing PT to improve alignment and strength per next treatment plan below. Pt to follow-up with Dr. Bolaños tomorrow about the liver lesion issue and she reports she will likely feel a lot better after that as far as PT . Physical Therapy Plan Frequency and Duration Frequency of Treatment 2x/Week Duration of Treatment 8 weeks Plan of Care Start Date 02/18/20 Plan of Care End Date 03/12/20 Therapeutic Interventions Therapeutic Interventions Balance Training,Canalithic Repositioning,Gait Training, Home Exercise Program,Joint Mobilizations,Manual Therapy, Neuromuscular Re-education, Patient/Caregiver Education, Self-Care/Home Management, Sensory Integration,Soft Tissue Mobilization,Taping, Therapeutic Activities, Therapeutic Exercises Modalities Cold Pack/Ice Massage,Electric Stimulation,Hot Packs, Ultrasound Next Visit Focus/Plan Next Note Type Treatment Note Next Visit Plan Next treatment: Add ankle eversion and DF strengthening with band. Con't to review and revise HEP as appropriate, consider further core exercises and pelvic realignment exercises for HEP, hip extension with band
--- NOTE | 2020-02-18 15:01 | PT.OPPOC ---
Physical, Occupational & Speech Therapy At [facility] Current Diagnoses Sprain of unspecified ligament of right ankle, initial encounter (02/18/20) Visit Care Team Role Provider Type Allen Bolaños MD Attending Provider Physician Family Provider Primary Care Provider Referring Provider Specialty: Family Practice Address: [address] [place] [address], [facility] Email: [email or web address] Plan Of Care PT-OP-T Assessment and Plan Start: 01/05/20 07:24 Freq: Status: Active Protocol: Document 02/18/20 09:47 MB (Rec: 02/18/20 10:25 MB [id number]) Physical Therapy Assessment Rehab Potential Rehabilitation Potential Fair Evaluation Complexity Number of Personal Factors/Comorbidities 1-2 Number of Body Systems Impaired 1-2 Clinical Presentation at Evaluation Evolving Impairments Impairments Activity Tolerance,Balance, Edema,Functional Activities, Functional Mobility,Gait, Integument,Pain,Posture,Soft Tissue Mobility,Strength Goals 5 Usp Goal (LTG) Pt will perform B SLS for 30 sec to improve overall balance by 03/14/2020. 02/18/20: Right 19 sec; left 21 sec LTG Duration 4 weeks 4 Usp Goal (LTG) Pt will perform at least 20 reps heel raises right ankle with wall support to indicate improved PF strength and ankle stability by 03/06/2020. 02/18/20: Pt is able to perform 20 reps heel raises on the right today (pt performs on the left as well today) LTG Duration Met 3 Design Maintenance Engineer Goal (LTG) Pt will perform progressive HEP with I including strengthening, postural and balance exercises to decrease pain and improve ankle stability by 03/14/2020. 02/18/20: Pt reports that she was doing her exercises really well but she is down with the liver concerns and hasn't been performing as much LTG Duration 4 weeks 2 Design Maintenance Engineer Goal (LTG) Pt will perform WNLs on a standardized balance test to decrease fall risk by 2020. 02/18/20: Pt presents WNLs on FGA with only trouble with tandem walking LTG Duration Met 1 Impairment LEF score reflects 25% impairment Design Maintenance Engineer Goal (LTG) Pt will present with an improved LEF score to reflect no more than 15% impairment to allow return to hiking by . 02/18/20: LEF score improved and reflects 18.75% impairment LTG Duration 4 weeks Assessment Summary Assessment Pt has progressed towards all PT goals since starting PT and these include performance of HEP and LEF score. In fact, LEF goal was advanced today. She has met FGA score and ability to perform 20 reps heel raises. PT added a SLS goal. She will benefit from ongoing PT to improve alignment and strength per next treatment plan below. Pt to follow-up with Dr. Bolaños tomorrow about the liver lesion issue and she reports she will likely feel a lot better after that as far as PT . Physical Therapy Plan Frequency and Duration Frequency of Treatment 2x/Week Duration of Treatment 8 weeks Plan of Care Start Date 02/18/20 Plan of Care End Date 03/12/20 Therapeutic Interventions Therapeutic Interventions Balance Training,Canalithic Repositioning,Gait Training, Home Exercise Program,Joint Mobilizations,Manual Therapy, Neuromuscular Re-education, Patient/Caregiver Education, Self-Care/Home Management, Sensory Integration,Soft Tissue Mobilization,Taping, Therapeutic Activities, Therapeutic Exercises Modalities Cold Pack/Ice Massage,Electric Stimulation,Hot Packs, Ultrasound Next Visit Focus/Plan Next Note Type Treatment Note Next Visit Plan Next treatment: Add ankle eversion and DF strengthening with band. Con't to review and revise HEP as appropriate, consider further core exercises and pelvic realignment exercises for HEP, hip extension with band Plan of Care Dates Plan of Care Start Date 02/18/20 Plan of Care End Date 03/12/20 Electronically Signed by: Arely Rubio, PT 02/18/20 1501 Please Sign and Return: I have reviewed this Plan of Care and certify that the skilled therapy services above are required to meet the patient?s needs. Physician Signature Date Printed Name and Credentials Clinical Instructor Signature Printed Name and Credentials
--- NOTE | 2020-02-20 10:30 | PT.OTN ---
Current Diagnoses Sprain of unspecified ligament of right ankle, initial encounter (02/20/20) Physical Therapy Treatment Note PT-OP-A Visit Information Start: 01/05/20 07:24 Freq: Status: Active Protocol: Document 02/20/20 09:48 MB (Rec: 02/20/20 10:29 MB [id number]) Out-Patient Physical Therapy Visit Information Visit Information Visit Type Treatment Note Visit Start Time 09:48 Visit Stop Time 10:30 Total Visit Minutes 42 Visit Number 10 PT-OP-B Current Condition Start: 01/05/20 07:24 Freq: Status: Active Protocol: Document 01/05/20 10:30 MB (Rec: 01/05/20 10:43 MB [id number]) Current Condition History of Current Condition Onset Date August 2017 Current Complaints Pain in the right ankle History of Current Condition Pt reports that in August 2017, she was hiking and stepped in a hole and twisted her ankle. She had x-rays and MRI and they were negative. She was given an ASO. They recommended PT at that time. She did not have PT. She reports pain in the anterolateral ankle and that she has a lot of swelling . She rates pain up to 8/10 at times. She has pain with doing the laundry when she has to go up and down the stairs. She has trouble doing inclines. She wears her ASO and boots when hiking. Recently, she went back to [place] to help her kids move and she was at the [place]. She was turning to throw stuff out and she twisted on her right. She had constant pain since that time That was in September 2019. When she was younger, she did martial arts and her ankles used to swell up. She had arthroscopic surgery and was told that she might need further surgery and her mother declined. The ankles feel weak. Prior Treatments and Tests X-ray right ankle 12/05/2019: NAD Treatment Goals Patient/Caregiver Goals To strengthen and walk without fear PT-OP-C Subjective Start: 01/05/20 07:24 Freq: Status: Active Protocol: Document 02/20/20 09:48 MB (Rec: 02/20/20 10:29 MB [id number]) OP-PT Subjective Patient Comments Patient Comments Pt states that she will have to cancel appointments next week d/t has to get COVID test and then quarantine before biopsy of lung or liver. PT-OP-D Balance Start: 01/05/20 07:24 Freq: Status: Active Protocol: Document 01/05/20 10:30 MB (Rec: 01/05/20 14:14 MB [id number]) Balance Tests Romberg Romberg Normal EO and EC Tandem Tandem Standing Left behind at least 30 sec; reaches for opposite posit PT-OP-G Mobility & Gait Start: 01/05/20 07:24 Freq: Status: Active Protocol: Document 01/05/20 10:30 MB (Rec: 01/05/20 14:14 MB [id number]) OP Gait Assessment Gait Gait Assistance Required: Independent Distance (Feet) 75 Assistive Devices Assistive Device None Orthotic/Prosthetic Devices or Brace: Yes Gait Deviations General Gait Pattern Antalgic,Decreased Stride Length,Decreased Feet Clearance,Lateral Trunk Lean, Wide Based Gait Factors Limiting Gait Function Factors Limiting Gait Function Decreased Strength,Pain,Poor Balance Comments Gait Comments Pt presents with increased lateral trunk movement B with gait and after PT assessment, presents with decreased heel strike on the right foot with toe touch gait with weight acceptance and push off. Note, she wears ASO on right foot upon arrival and walks without it after assessment. PT-OP-J Posture/Palpation/Skin Start: 01/05/20 07:24 Freq: Status: Active Protocol: Document 01/05/20 10:30 MB (Rec: 01/05/20 14:14 MB [id number]) Skin Assessment Other Assessments Skin Assessment Comments Standing posture: increased body mass, greater over hips/ LEs, decreased thoracic kyphosis, increased lumbar lordosis, increased supination left foot and increased WB through right great toe, right shoulder and right iliac crest higher than the left. Pt presents with some edema around the right ankle. PT-OP-K Range of Motion Start: 01/05/20 07:24 Freq: Status: Active Protocol: Document 01/05/20 10:30 MB (Rec: 01/05/20 14:14 MB [id number]) Ankle and Foot Goniometric Range of Motion Ankle and Foot ROM Limitations Comments Ankle ROM B is normal, not pushed d/t likely ligamentous injury and instability from injuries PT-OP-M Strength Start: 01/05/20 07:24 Freq: Status: Active Protocol: Document 01/05/20 10:30 MB (Rec: 01/05/20 14:14 MB [id number]) Hip Strength Hip Manual Muscle Testing Left Flexion (L2) 4 Good Abduction 3+ Fair+ Right Flexion (L2) 4 Good Abduction 3+ Fair+ Knee Strength Knee Manual Muscle Testing Left Flexion (S2) 5 Normal Extension (L3) 5 Normal Right Flexion (S2) 4 Good Extension (L3) 5 Normal Ankle/Foot Strength Ankle and Foot Manual Muscle Testing Left Dorsiflexion (L4) 5 Normal Inversion 5 Normal Eversion (S1) 4 Good Comments Pt is able to perform at least 20 heel raises with wall support Right Dorsiflexion (L4) 5 Normal Inversion 4 Good Eversion (S1) 4 Good Comments Pt is able to perform 5 heel raises with wall support PT-OP-Q Treatments Start: 01/05/20 07:24 Freq: Status: Active Protocol: Document 02/20/20 09:48 MB (Rec: 02/20/20 10:29 MB [id number]) Therapeutic Exercises Supine Exercises Buteyko breathing Supine Exercise Name Reduced exercise 1 Comments HR and O2 at rest: 59 BPM and 99%. See findings below Progressive muscle relaxation Side bilateral Comments D/cd toe curl, and performed all others PT-OP-T Assessment and Plan Start: 01/05/20 07:24 Freq: Status: Active Protocol: Document 02/20/20 09:48 MB (Rec: 02/20/20 10:29 MB [id number]) Physical Therapy Assessment Rehab Potential Rehabilitation Potential Fair Evaluation Complexity Number of Personal Factors/Comorbidities 1-2 Number of Body Systems Impaired 1-2 Clinical Presentation at Evaluation Evolving Impairments Impairments Activity Tolerance,Balance, Edema,Functional Activities, Functional Mobility,Gait, Integument,Pain,Posture,Soft Tissue Mobility,Strength Goals 5 Vocational Rehabilitation Counselor Goal (LTG) Pt will perform B SLS for 30 sec to improve overall balance by 03/14/2020. 02/18/20: Right 19 sec; left 21 sec LTG Duration 4 weeks 4 Retirement Goal (LTG) Pt will perform at least 20 reps heel raises right ankle with wall support to indicate improved PF strength and ankle stability by 03/06/2020. 02/18/20: Pt is able to perform 20 reps heel raises on the right today (pt performs on the left as well today) LTG Duration Met 3 Retirement Goal (LTG) Pt will perform progressive HEP with I including strengthening, postural and balance exercises to decrease pain and improve ankle stability by 03/14/2020. 02/18/20: Pt reports that she was doing her exercises really well but she is down with the liver concerns and hasn't been performing as much LTG Duration 4 weeks 2 Vocational Rehabilitation Counselor Goal (LTG) Pt will perform WNLs on a standardized balance test to decrease fall risk by 2020. 02/18/20: Pt presents WNLs on FGA with only trouble with tandem walking LTG Duration Met 1 Impairment LEF score reflects 25% impairment Retirement Goal (LTG) Pt will present with an improved LEF score to reflect no more than 15% impairment to allow return to hiking by . 02/18/20: LEF score improved and reflects 18.75% impairment LTG Duration 4 weeks Assessment Summary Assessment Buteyko breathing today requires most of treatment for education and performance. Instructed pt in exercise 1 and pt performs today. 1st rep Buteyko 16 sec and HR drops 2 BPM, 2nd rep 25 sec and drops HR 4 BPM, 3rd rep 31 sec and HR drops 4 BPM, 4th rep: 35 sec and HR down to 56 BPM, 5th rep: 28 sec, 7 BPM. With inhalation, HR increases again up to 63 BPM and settling at 60 BPM. Also ed pt in progressive relaxation technique this date. These to help improve parasympathetic response in setting of increased stress with diagnostic findings and upcoming procedures. Pt tolerates well. Will con't treatment for LEs when pt returns to PT after procedures . Physical Therapy Plan Frequency and Duration Frequency of Treatment 2x/Week Duration of Treatment 8 weeks Plan of Care Start Date 02/18/20 Plan of Care End Date 03/12/20 Therapeutic Interventions Therapeutic Interventions Balance Training,Canalithic Repositioning,Gait Training, Home Exercise Program,Joint Mobilizations,Manual Therapy, Neuromuscular Re-education, Patient/Caregiver Education, Self-Care/Home Management, Sensory Integration,Soft Tissue Mobilization,Taping, Therapeutic Activities, Therapeutic Exercises Modalities Cold Pack/Ice Massage,Electric Stimulation,Hot Packs, Ultrasound Next Visit Focus/Plan Next Note Type Treatment Note Next Visit Plan Next treatment: Add ankle eversion and DF strengthening with band. Con't to review and revise HEP as appropriate, consider further core exercises and pelvic realignment exercises for HEP, hip extension with band
--- NOTE | 2020-02-25 15:37 | PT-IP ANOTE ---
PT receives message from front office that pt tested positive for COVID when tested pre-procedure this week. Pt cancelled appointments for the quarantine duration. Pt attempts to call pt to check in and she is unavailable.
--- NOTE | 2020-03-18 13:22 | PT-OP ANOTE ---
Pt states that she tested negative for COVID. She did not have the pulmonary biopsy d/t the nodule is too close to a major blood vessel. She is going to have PET scan tomorrow. Her foot has been bothering her and she has not been doing her exercises. She will con't with PT next week.
--- NOTE | 2020-03-24 10:00 | PT.OTN ---
Current Diagnoses Sprain of unspecified ligament of right ankle, initial encounter (03/24/20) Physical Therapy Treatment Note PT-OP-A Visit Information Start: 01/05/20 07:24 Freq: Status: Active Protocol: Document 03/24/20 09:03 MB (Rec: 03/24/20 09:59 MB [id number]) Out-Patient Physical Therapy Visit Information Visit Information Visit Type Progress Note Visit Note Note in EMR auth . Spoke with front office and no PA required and pt gets 24 visits with Kyrie per year Visit Start Time 09:03 Visit Stop Time 09:50 Total Visit Minutes 47 Visit Number 11, 05/05 for year PT-OP-B Current Condition Start: 01/05/20 07:24 Freq: Status: Active Protocol: Document 01/05/20 10:30 MB (Rec: 01/05/20 10:43 MB [id number]) Current Condition History of Current Condition Onset Date August 2017 Current Complaints Pain in the right ankle History of Current Condition Pt reports that in August 2017, she was hiking and stepped in a hole and twisted her ankle. She had x-rays and MRI and they were negative. She was given an ASO. They recommended PT at that time. She did not have PT. She reports pain in the anterolateral ankle and that she has a lot of swelling . She rates pain up to 8/10 at times. She has pain with doing the laundry when she has to go up and down the stairs. She has trouble doing inclines. She wears her ASO and boots when hiking. Recently, she went back to [place] to help her kids move and she was at the dump. She was turning to throw stuff out and she twisted on her right. She had constant pain since that time That was in September 2019. When she was younger, she did martial arts and her ankles used to swell up. She had arthroscopic surgery and was told that she might need further surgery and her mother declined. The ankles feel weak. Prior Treatments and Tests X-ray right ankle 12/05/2019: NAD Treatment Goals Patient/Caregiver Goals To strengthen and walk without fear PT-OP-C Subjective Start: 01/05/20 07:24 Freq: Status: Active Protocol: Document 03/24/20 09:03 MB (Rec: 03/24/20 09:59 MB [id number]) OP-PT Subjective Patient Comments Patient Comments Pt went for her PET on Sunday and has not gotten any results . It was done at [facility]. She has been going on short walks and has not had foot pain. Pt states that she is taking some anxiety pills and this is helping with right quadrant pain. She is doing some of her exercises. She has not been using her recumbent bike. PT-OP-D Balance Start: 01/05/20 07:24 Freq: Status: Active Protocol: Document 01/05/20 10:30 MB (Rec: 01/05/20 14:14 MB [id number]) Balance Tests Romberg Romberg Normal EO and EC Tandem Tandem Standing Left behind at least 30 sec; reaches for opposite posit PT-OP-G Mobility & Gait Start: 01/05/20 07:24 Freq: Status: Active Protocol: Document 01/05/20 10:30 MB (Rec: 01/05/20 14:14 MB [id number]) OP Gait Assessment Gait Gait Assistance Required: Independent Distance (Feet) 75 Assistive Devices Assistive Device None Orthotic/Prosthetic Devices or Brace: Yes Gait Deviations General Gait Pattern Antalgic,Decreased Stride Length,Decreased Feet Clearance,Lateral Trunk Lean, Wide Based Gait Factors Limiting Gait Function Factors Limiting Gait Function Decreased Strength,Pain,Poor Balance Comments Gait Comments Pt presents with increased lateral trunk movement B with gait and after PT assessment, presents with decreased heel strike on the right foot with toe touch gait with weight acceptance and push off. Note, she wears ASO on right foot upon arrival and walks without it after assessment. PT-OP-J Posture/Palpation/Skin Start: 01/05/20 07:24 Freq: Status: Active Protocol: Document 01/05/20 10:30 MB (Rec: 01/05/20 14:14 MB [id number]) Skin Assessment Other Assessments Skin Assessment Comments Standing posture: increased body mass, greater over hips/ LEs, decreased thoracic kyphosis, increased lumbar lordosis, increased supination left foot and increased WB through right great toe, right shoulder and right iliac crest higher than the left. Pt presents with some edema around the right ankle. PT-OP-K Range of Motion Start: 01/05/20 07:24 Freq: Status: Active Protocol: Document 01/05/20 10:30 MB (Rec: 01/05/20 14:14 MB [id number]) Ankle and Foot Goniometric Range of Motion Ankle and Foot ROM Limitations Comments Ankle ROM B is normal, not pushed d/t likely ligamentous injury and instability from injuries PT-OP-M Strength Start: 01/05/20 07:24 Freq: Status: Active Protocol: Document 01/05/20 10:30 MB (Rec: 01/05/20 14:14 MB [id number]) Hip Strength Hip Manual Muscle Testing Left Flexion (L2) 4 Good Abduction 3+ Fair+ Right Flexion (L2) 4 Good Abduction 3+ Fair+ Knee Strength Knee Manual Muscle Testing Left Flexion (S2) 5 Normal Extension (L3) 5 Normal Right Flexion (S2) 4 Good Extension (L3) 5 Normal Ankle/Foot Strength Ankle and Foot Manual Muscle Testing Left Dorsiflexion (L4) 5 Normal Inversion 5 Normal Eversion (S1) 4 Good Comments Pt is able to perform at least 20 heel raises with wall support Right Dorsiflexion (L4) 5 Normal Inversion 4 Good Eversion (S1) 4 Good Comments Pt is able to perform 5 heel raises with wall support PT-OP-Q Treatments Start: 01/05/20 07:24 Freq: Status: Active Protocol: Document 03/24/20 09:03 MB (Rec: 03/24/20 09:59 MB [id number]) Therapeutic Exercises Supine Exercises Buteyko breathing Comments Reviewed today Progressive muscle relaxation Comments Reviewed today Core engagement progression Comments Reviewed today Pelvic realignment exercises Comments Not given for home yet Jose Juan stretch with core engagement Comments Reviewed today Hamstring stretch with AP Comments Reviewed today Sitting Exercises Toe flexion/DF with band, foot hammock Comments Reviewed today Standing Exercises Crab walking with band Comments Reviewed today and pt is performing with level 1 band at home SLS Comments Reviewed today Gastroc and soleus stretched and then toe raises Comments Reviewed today PT-OP-T Assessment and Plan Start: 01/05/20 07:24 Freq: Status: Active Protocol: Document 03/24/20 09:03 MB (Rec: 03/24/20 09:59 MB [id number]) Physical Therapy Assessment Rehab Potential Rehabilitation Potential Fair Evaluation Complexity Number of Personal Factors/Comorbidities 1-2 Number of Body Systems Impaired 1-2 Clinical Presentation at Evaluation Evolving Impairments Impairments Activity Tolerance,Balance, Edema,Functional Activities, Functional Mobility,Gait, Integument,Pain,Posture,Soft Tissue Mobility,Strength Goals 5 News Correspondent Goal (LTG) Pt will perform B SLS for 30 sec to improve overall balance by 04/09/2020. 03/24/20: No progress with either SLS today which may be related to break from PT and less exercises LTG Duration 4 weeks 4 Senior Care Goal (LTG) Pt will perform at least 20 reps heel raises right ankle with wall support to indicate improved PF strength and ankle stability by 03/06/2020. 02/18/20: Pt is able to perform 20 reps heel raises on the right today (pt performs on the left as well today) LTG Duration Met 3 Senior Care Goal (LTG) Pt will perform progressive HEP with I including strengthening, postural and balance exercises to decrease pain and improve ankle stability by 04/09/2020. 03/24/20: Pt has not been doing exercises as much since recent events LTG Duration 4 weeks 1 Impairment LEF score reflects 25% impairment News Correspondent Goal (LTG) Pt will present with an improved LEF score to reflect no more than 15% impairment to allow return to hiking by . 03/24/20: LEF score improved and reflects 18.75% impairment which is the same since last progress noted and pt has been on hold after false positive COVID testing and awaiting PET LTG Duration 4 weeks Assessment Summary Assessment Pt has not been seen in 32 days after positive COVID test (pt states no one else in the house tested positive and she had no symptoms and may have been false positive) and holding for testing after found nodules and liver and lung. Her POC is up and so goals addressed today and updated. She has not been able to make progress over the last month when not seen. Reviewed all exercises today and pt to bring in her folder next treatment to make sure she has all she needs for handouts. PT does divide up exercises and make a weekly routine for pt with handout provided today. Anticipate 3-4 more treatments and then d/c. Understandably, pt has been very concerned about the results of her PET and this has affected her everyday routine at home. Physical Therapy Plan Frequency and Duration Frequency of Treatment 2x/Week Duration of Treatment 3-4 treatments Plan of Care Start Date 03/24/20 Plan of Care End Date 04/09/20 Therapeutic Interventions Therapeutic Interventions Balance Training,Canalithic Repositioning,Gait Training, Home Exercise Program,Joint Mobilizations,Manual Therapy, Neuromuscular Re-education, Patient/Caregiver Education, Self-Care/Home Management, Sensory Integration,Soft Tissue Mobilization,Taping, Therapeutic Activities, Therapeutic Exercises Modalities Cold Pack/Ice Massage,Electric Stimulation,Hot Packs, Ultrasound Next Visit Focus/Plan Next Note Type Treatment Note Next Visit Plan Progress exercises as appropriate including Buteyko exercises, ankle eversion and DF with band, pelvic realignment for home, standing doorway stretch for hip for home and backwards walking with band
--- NOTE | 2020-03-24 10:00 | PT.OPPOC ---
Physical, Occupational & Speech Therapy At [facility] Current Diagnoses Sprain of unspecified ligament of right ankle, initial encounter (03/24/20) Visit Care Team Role Provider Type Allen Bolaños MD Attending Provider Physician Family Provider Primary Care Provider Referring Provider Specialty: Family Practice Address: [address] [place] [address], [facility] Email: [email or web address] Plan Of Care PT-OP-T Assessment and Plan Start: 01/05/20 07:24 Freq: Status: Active Protocol: Document 03/24/20 09:03 MB (Rec: 03/24/20 09:59 MB [id number]) Physical Therapy Assessment Rehab Potential Rehabilitation Potential Fair Evaluation Complexity Number of Personal Factors/Comorbidities 1-2 Number of Body Systems Impaired 1-2 Clinical Presentation at Evaluation Evolving Impairments Impairments Activity Tolerance,Balance, Edema,Functional Activities, Functional Mobility,Gait, Integument,Pain,Posture,Soft Tissue Mobility,Strength Goals 5 Shelter Goal (LTG) Pt will perform B SLS for 30 sec to improve overall balance by 04/09/2020. 03/24/20: No progress with either SLS today which may be related to break from PT and less exercises LTG Duration 4 weeks 4 Shelter Goal (LTG) Pt will perform at least 20 reps heel raises right ankle with wall support to indicate improved PF strength and ankle stability by 03/06/2020. 02/18/20: Pt is able to perform 20 reps heel raises on the right today (pt performs on the left as well today) LTG Duration Met 3 Shelter Goal (LTG) Pt will perform progressive HEP with I including strengthening, postural and balance exercises to decrease pain and improve ankle stability by 04/09/2020. 03/24/20: Pt has not been doing exercises as much since recent events LTG Duration 4 weeks 1 Impairment LEF score reflects 25% impairment Head [employer] Goal (LTG) Pt will present with an improved LEF score to reflect no more than 15% impairment to allow return to hiking by . 03/24/20: LEF score improved and reflects 18.75% impairment which is the same since last progress noted and pt has been on hold after false positive COVID testing and awaiting PET LTG Duration 4 weeks Assessment Summary Assessment Pt has not been seen in 32 days after positive COVID test (pt states no one else in the house tested positive and she had no symptoms and may have been false positive) and holding for testing after found nodules and liver and lung. Her POC is up and so goals addressed today and updated. She has not been able to make progress over the last month when not seen. Reviewed all exercises today and pt to bring in her folder next treatment to make sure she has all she needs for handouts. PT does divide up exercises and make a weekly routine for pt with handout provided today. Anticipate 3-4 more treatments and then d/c. Understandably, pt has been very concerned about the results of her PET and this has affected her everyday routine at home. Physical Therapy Plan Frequency and Duration Frequency of Treatment 2x/Week Duration of Treatment 3-4 treatments Plan of Care Start Date 03/24/20 Plan of Care End Date 04/09/20 Therapeutic Interventions Therapeutic Interventions Balance Training,Canalithic Repositioning,Gait Training, Home Exercise Program,Joint Mobilizations,Manual Therapy, Neuromuscular Re-education, Patient/Caregiver Education, Self-Care/Home Management, Sensory Integration,Soft Tissue Mobilization,Taping, Therapeutic Activities, Therapeutic Exercises Modalities Cold Pack/Ice Massage,Electric Stimulation,Hot Packs, Ultrasound Next Visit Focus/Plan Next Note Type Treatment Note Next Visit Plan Progress exercises as appropriate including Buteyko exercises, ankle eversion and DF with band, pelvic realignment for home, standing doorway stretch for hip for home and backwards walking with band Plan of Care Dates Plan of Care Start Date 03/24/20 Plan of Care End Date 04/09/20 Electronically Signed by: Arely Rubio, PT 03/24/20 1000 Please Sign and Return: I have reviewed this Plan of Care and certify that the skilled therapy services above are required to meet the patient?s needs. Physician Signature Date Printed Name and Credentials Clinical Instructor Signature Printed Name and Credentials
--- NOTE | 2020-03-26 09:45 | PT.OTN ---
Current Diagnoses Sprain of unspecified ligament of right ankle, initial encounter (03/26/20) Physical Therapy Treatment Note PT-OP-A Visit Information Start: 01/05/20 07:24 Freq: Status: Active Protocol: Document 03/26/20 09:03 MB (Rec: 03/26/20 09:40 MB [id number]) Out-Patient Physical Therapy Visit Information Visit Information Visit Type Treatment Note Visit Start Time 09:03 Visit Stop Time 09:45 Total Visit Minutes 42 Visit Number 12, 06/05 for year PT-OP-B Current Condition Start: 01/05/20 07:24 Freq: Status: Active Protocol: Document 01/05/20 10:30 MB (Rec: 01/05/20 10:43 MB [id number]) Current Condition History of Current Condition Onset Date August 2017 Current Complaints Pain in the right ankle History of Current Condition Pt reports that in August 2017, she was hiking and stepped in a hole and twisted her ankle. She had x-rays and MRI and they were negative. She was given an ASO. They recommended PT at that time. She did not have PT. She reports pain in the anterolateral ankle and that she has a lot of swelling . She rates pain up to 8/10 at times. She has pain with doing the laundry when she has to go up and down the stairs. She has trouble doing inclines. She wears her ASO and boots when hiking. Recently, she went back to [place] to help her kids move and she was at the dump. She was turning to throw stuff out and she twisted on her right. She had constant pain since that time That was in September 2019. When she was younger, she did martial arts and her ankles used to swell up. She had arthroscopic surgery and was told that she might need further surgery and her mother declined. The ankles feel weak. Prior Treatments and Tests X-ray right ankle 12/05/2019: NAD Treatment Goals Patient/Caregiver Goals To strengthen and walk without fear PT-OP-C Subjective Start: 01/05/20 07:24 Freq: Status: Active Protocol: Document 03/26/20 09:03 MB (Rec: 03/26/20 09:40 MB [id number]) OP-PT Subjective Patient Comments Patient Comments Pt states that she has no cancer and feels like a new woman. She brings in HEP handouts to review. PT-OP-D Balance Start: 01/05/20 07:24 Freq: Status: Active Protocol: Document 01/05/20 10:30 MB (Rec: 01/05/20 14:14 MB [id number]) Balance Tests Romberg Romberg Normal EO and EC Tandem Tandem Standing Left behind at least 30 sec; reaches for opposite posit PT-OP-G Mobility & Gait Start: 01/05/20 07:24 Freq: Status: Active Protocol: Document 01/05/20 10:30 MB (Rec: 01/05/20 14:14 MB [id number]) OP Gait Assessment Gait Gait Assistance Required: Independent Distance (Feet) 75 Assistive Devices Assistive Device None Orthotic/Prosthetic Devices or Brace: Yes Gait Deviations General Gait Pattern Antalgic,Decreased Stride Length,Decreased Feet Clearance,Lateral Trunk Lean, Wide Based Gait Factors Limiting Gait Function Factors Limiting Gait Function Decreased Strength,Pain,Poor Balance Comments Gait Comments Pt presents with increased lateral trunk movement B with gait and after PT assessment, presents with decreased heel strike on the right foot with toe touch gait with weight acceptance and push off. Note, she wears ASO on right foot upon arrival and walks without it after assessment. PT-OP-J Posture/Palpation/Skin Start: 01/05/20 07:24 Freq: Status: Active Protocol: Document 01/05/20 10:30 MB (Rec: 01/05/20 14:14 MB [id number]) Skin Assessment Other Assessments Skin Assessment Comments Standing posture: increased body mass, greater over hips/ LEs, decreased thoracic kyphosis, increased lumbar lordosis, increased supination left foot and increased WB through right great toe, right shoulder and right iliac crest higher than the left. Pt presents with some edema around the right ankle. PT-OP-K Range of Motion Start: 01/05/20 07:24 Freq: Status: Active Protocol: Document 01/05/20 10:30 MB (Rec: 01/05/20 14:14 MB [id number]) Ankle and Foot Goniometric Range of Motion Ankle and Foot ROM Limitations Comments Ankle ROM B is normal, not pushed d/t likely ligamentous injury and instability from injuries PT-OP-M Strength Start: 01/05/20 07:24 Freq: Status: Active Protocol: Document 01/05/20 10:30 MB (Rec: 01/05/20 14:14 MB [id number]) Hip Strength Hip Manual Muscle Testing Left Flexion (L2) 4 Good Abduction 3+ Fair+ Right Flexion (L2) 4 Good Abduction 3+ Fair+ Knee Strength Knee Manual Muscle Testing Left Flexion (S2) 5 Normal Extension (L3) 5 Normal Right Flexion (S2) 4 Good Extension (L3) 5 Normal Ankle/Foot Strength Ankle and Foot Manual Muscle Testing Left Dorsiflexion (L4) 5 Normal Inversion 5 Normal Eversion (S1) 4 Good Comments Pt is able to perform at least 20 heel raises with wall support Right Dorsiflexion (L4) 5 Normal Inversion 4 Good Eversion (S1) 4 Good Comments Pt is able to perform 5 heel raises with wall support PT-OP-Q Treatments Start: 01/05/20 07:24 Freq: Status: Active Protocol: Document 03/26/20 09:03 MB (Rec: 03/26/20 09:40 MB [id number]) Cardio Equipment Recumbent Bicycle Duration (Minutes) 13 Resistance 6 Therapeutic Exercises Supine Exercises Core engagement progression Comments Performed today and added rocking and HS exercise Pelvic realignment exercises Comments 5 reps all, 3 sec hold and provided for HEP Sitting Exercises Sitting ankle eversion and Df Comments Level 2 band, 10 reps, slowly PT-OP-T Assessment and Plan Start: 01/05/20 07:24 Freq: Status: Active Protocol: Document 03/26/20 09:03 MB (Rec: 03/26/20 09:40 MB [id number]) Physical Therapy Assessment Rehab Potential Rehabilitation Potential Fair Evaluation Complexity Number of Personal Factors/Comorbidities 1-2 Number of Body Systems Impaired 1-2 Clinical Presentation at Evaluation Evolving Impairments Impairments Activity Tolerance,Balance, Edema,Functional Activities, Functional Mobility,Gait, Integument,Pain,Posture,Soft Tissue Mobility,Strength Goals 5 Wool Cleaner Goal (LTG) Pt will perform B SLS for 30 sec to improve overall balance by 04/09/2020. 03/24/20: No progress with either SLS today which may be related to break from PT and less exercises LTG Duration 4 weeks 3 Nursing Home Goal (LTG) Pt will perform progressive HEP with I including strengthening, postural and balance exercises to decrease pain and improve ankle stability by 04/09/2020. 03/24/20: Pt has not been doing exercises as much since recent events LTG Duration 4 weeks 1 Impairment LEF score reflects 25% impairment Wool Cleaner Goal (LTG) Pt will present with an improved LEF score to reflect no more than 15% impairment to allow return to hiking by . 03/24/20: LEF score improved and reflects 18.75% impairment which is the same since last progress noted and pt has been on hold after false positive COVID testing and awaiting PET LTG Duration 4 weeks Assessment Summary Assessment Reviewed all of pt's exercise handouts today and practiced several and pt states that she feels a lot less overwhelmed with broken down HEP plan. Anticipate d/c PT next treatment date. Physical Therapy Plan Frequency and Duration Frequency of Treatment 2x/Week Duration of Treatment 3-4 treatments Plan of Care Start Date 03/24/20 Plan of Care End Date 04/09/20 Therapeutic Interventions Therapeutic Interventions Balance Training,Canalithic Repositioning,Gait Training, Home Exercise Program,Joint Mobilizations,Manual Therapy, Neuromuscular Re-education, Patient/Caregiver Education, Self-Care/Home Management, Sensory Integration,Soft Tissue Mobilization,Taping, Therapeutic Activities, Therapeutic Exercises Modalities Cold Pack/Ice Massage,Electric Stimulation,Hot Packs, Ultrasound Next Visit Focus/Plan Next Note Type Discharge Summary Next Visit Plan Review exercises as needed
--- NOTE | 2020-04-02 08:04 | PT.OPDS ---
Current Diagnoses Sprain of unspecified ligament of right ankle, initial encounter (03/26/20) Visit Care Team Role Provider Type Allen Bolaños MD Attending Provider Physician Family Provider Primary Care Provider Referring Provider Specialty: Family Practice Address: [address] [place] [address], [facility] Email: [email or web address] Visit Number Visit Number 12, 06/05 for year Discharge Summary PT-OP-B Current Condition Start: 01/05/20 07:24 Freq: Status: Active Protocol: Document 01/05/20 10:30 MB (Rec: 01/05/20 10:43 MB [id number]) Current Condition History of Current Condition Onset Date August 2017 Current Complaints Pain in the right ankle History of Current Condition Pt reports that in August 2017, she was hiking and stepped in a hole and twisted her ankle. She had x-rays and MRI and they were negative. She was given an ASO. They recommended PT at that time. She did not have PT. She reports pain in the anterolateral ankle and that she has a lot of swelling . She rates pain up to 8/10 at times. She has pain with doing the laundry when she has to go up and down the stairs. She has trouble doing inclines. She wears her ASO and boots when hiking. Recently, she went back to [place] to help her kids move and she was at the dump. She was turning to throw stuff out and she twisted on her right. She had constant pain since that time That was in September 2019. When she was younger, she did martial arts and her ankles used to swell up. She had arthroscopic surgery and was told that she might need further surgery and her mother declined. The ankles feel weak. Prior Treatments and Tests X-ray right ankle 12/05/2019: NAD Treatment Goals Patient/Caregiver Goals To strengthen and walk without fear PT-OP-C Subjective Start: 01/05/20 07:24 Freq: Status: Active Protocol: Document 03/26/20 09:03 MB (Rec: 03/26/20 09:40 MB [id number]) OP-PT Subjective Patient Comments Patient Comments Pt states that she has no cancer and feels like a new woman. She brings in HEP handouts to review. PT-OP-D Balance Start: 01/05/20 07:24 Freq: Status: Active Protocol: Document 01/05/20 10:30 MB (Rec: 01/05/20 14:14 MB [id number]) Balance Tests Romberg Romberg Normal EO and EC Tandem Tandem Standing Left behind at least 30 sec; reaches for opposite posit PT-OP-G Mobility & Gait Start: 01/05/20 07:24 Freq: Status: Active Protocol: Document 01/05/20 10:30 MB (Rec: 01/05/20 14:14 MB [id number]) OP Gait Assessment Gait Gait Assistance Required: Independent Distance (Feet) 75 Assistive Devices Assistive Device None Orthotic/Prosthetic Devices or Brace: Yes Gait Deviations General Gait Pattern Antalgic,Decreased Stride Length,Decreased Feet Clearance,Lateral Trunk Lean, Wide Based Gait Factors Limiting Gait Function Factors Limiting Gait Function Decreased Strength,Pain,Poor Balance Comments Gait Comments Pt presents with increased lateral trunk movement B with gait and after PT assessment, presents with decreased heel strike on the right foot with toe touch gait with weight acceptance and push off. Note, she wears ASO on right foot upon arrival and walks without it after assessment. PT-OP-J Posture/Palpation/Skin Start: 01/05/20 07:24 Freq: Status: Active Protocol: Document 01/05/20 10:30 MB (Rec: 01/05/20 14:14 MB [id number]) Skin Assessment Other Assessments Skin Assessment Comments Standing posture: increased body mass, greater over hips/ LEs, decreased thoracic kyphosis, increased lumbar lordosis, increased supination left foot and increased WB through right great toe, right shoulder and right iliac crest higher than the left. Pt presents with some edema around the right ankle. PT-OP-K Range of Motion Start: 01/05/20 07:24 Freq: Status: Active Protocol: Document 01/05/20 10:30 MB (Rec: 01/05/20 14:14 MB [id number]) Ankle and Foot Goniometric Range of Motion Ankle and Foot ROM Limitations Comments Ankle ROM B is normal, not pushed d/t likely ligamentous injury and instability from injuries PT-OP-M Strength Start: 01/05/20 07:24 Freq: Status: Active Protocol: Document 01/05/20 10:30 MB (Rec: 01/05/20 14:14 MB [id number]) Hip Strength Hip Manual Muscle Testing Left Flexion (L2) 4 Good Abduction 3+ Fair+ Right Flexion (L2) 4 Good Abduction 3+ Fair+ Knee Strength Knee Manual Muscle Testing Left Flexion (S2) 5 Normal Extension (L3) 5 Normal Right Flexion (S2) 4 Good Extension (L3) 5 Normal Ankle/Foot Strength Ankle and Foot Manual Muscle Testing Left Dorsiflexion (L4) 5 Normal Inversion 5 Normal Eversion (S1) 4 Good Comments Pt is able to perform at least 20 heel raises with wall support Right Dorsiflexion (L4) 5 Normal Inversion 4 Good Eversion (S1) 4 Good Comments Pt is able to perform 5 heel raises with wall support PT-OP-T Assessment and Plan Start: 01/05/20 07:24 Freq: Status: Active Protocol: Document 04/02/20 08:03 MB (Rec: 04/02/20 08:04 MB [id number]) Physical Therapy Plan Discharge Physical Therapy Discharge Reasons Goals Met Discharge Comments Pt's last appointment was cancelled d/t this PT was out. PT follows up with patient and she is confident with HEP and is ready to d/c. Will d/c PT.
== END 2020-04-09 09:17 ==
LOC: PHYS 09:00
PROVIDERS: Family Provider Family Medicine; PCP Family Medicine; Referring Provider Family Medicine; Visit Provider Family Medicine
DX: S93.401A Sprain of unspecified ligament of right ankle, initial encounter (principal)
CPT/HCPCS: 97110; 97112; 97140; 97161

== ENCOUNTER → 2020-04-02 12:38 | Outpatient (CLI) | payer OTHER, MEDICAID, SELFPAY ==
--- NOTE | 2020-04-02 12:39 | DI.US.S_ITS ---
PROCEDURE: US PELVIC COMPLETE INDICATIONS: HYPERMETABOLIC SPOT IN UTERUS ON PET/CT ?ENDOMETRIAL CANCER TECHNIQUE: Real-time scanning was performed of the pelvic organs, with image documentation. Additional endovaginal scanning was necessary due to incomplete visualization of the adnexal and endometrial structures by transabdominal scanning. COMPARISON: [place], [place], PET NECK TO MID THIGH, 03/19/2020, 9:36. FINDINGS: Uterus: Uterus is normal in size at 9.3 x 6.2 x 6.9 cm. There are 2 hypoechoic lesions myometrial lesions present, presumed to represent small uterine fibroids, measuring 2.3 x 2.1 x 2.7 cm and 1.2 x 1.5 x 1.3 cm respectively. The endometrium measures 14.7 mm in combined thickness. Ovaries: Right ovary measures 3.3 x 2.3 x 2.1 cm. There is a probable hemorrhagic cyst measuring 2.5 x 2.0 x 2.1 cm. Left ovary is not visualized, possibly secondary to overlying bowel gas. Other: No pathologic free abdominal or pelvic fluid. IMPRESSION: 1. In this patient with increased uptake on recent PET-CT, possibly related to the endometrium or potentially the myometrium, there is prominence of the endometrial tissue, as well as 2 small hypoechoic lesions which are presumed to represent small fibroids. Consider possible endometrial carcinoma versus increased uptake related to a myometrial lesion. Suggest NON ACOUSTIC OPERATOR referral. Dictated by: Jey Warner M.D. on 04/03/2020 at 9:13 Approved by: Jey Warner M.D. on 04/03/2020 at 9:22
== END ==
PROVIDERS: Family Provider Family Medicine; PCP Family Medicine; Referring Provider Family Medicine; Visit Provider Family Medicine
DX: N85.00 Endometrial hyperplasia, unspecified (principal)
CPT/HCPCS: 76830; 76856

== ENCOUNTER → 2022-05-11 15:57 | Outpatient (CLI) | payer BC, SELFPAY ==
[2022-05-11 16:14] LABS: Add Manual Diff / Slide Review NO; Basophils Absolute Auto 100 /uL (0-100); Basophils Percent Auto 0.9 % (0-2); Eosinophils Absolute Auto 100 /uL (0-450); Eosinophils Percent Auto 0.9 % (2-4); Hematocrit 39.4 % (36-46); Hemoglobin 13.4 g/dL (12.0-16.0); Lymphocytes Absolute Auto 1700 /uL (1100-4500); Lymphocytes Percent Auto 26.6 % (25-40); Mean Corpuscular Volume 97.1 fL (80-100); Monocytes Absolute Auto 500 /uL (0-900); Monocytes Percent Auto 8.3 % (3-14); Neutrophils Absolute Auto 4000 /uL (1500-7000); Neutrophils Percent Auto 63.3 % (50-75); Platelet Count 184 X10^3/uL (150-400); Red Blood Cell Count 4.06 X10^6/uL (4.0-5.2); Red Cell Distribution Width 12.5 % (11.6-14.8); White Blood Cell Count 6.4 X10^3/uL (4.5-11.0)
[2022-05-11 16:31] LABS: Alanine Aminotransferase 19 IU/L (<35); Albumin 4.2 g/dL (3.5-5.0); Albumin Globulin Ratio 1.3 (1.0-2.8); Alkaline Phosphatase 40 U/L (38-126); Aspartate Aminotransferase 23 IU/L (14-36); BUN Creatinine Ratio 22.2 (6-22); Bilirubin Total 0.3 mg/dL (0.2-1.3); Blood Urea Nitrogen 14 mg/dL (7-17); Calcium 8.8 mg/dL (8.4-10.2); Carbon Dioxide 29 mmol/L (22-32); Chloride 104 mmol/L (98-107); Cholesterol 153 mg/dL (140-199); Estimated Glomerular Filt Rate > 60 mL/min (>60); Globulin 3.2 g/dL (1.7-4.1); Glucose 104 mg/dL (70-100); HDL Cholesterol 77 mg/dL (40-60); HEMOLYSIS < 15 (0-50); LDL Cholesterol Calculated 67 mg/dL (<100); Potassium 3.9 mmol/L (3.4-5.1); Sodium 139 mmol/L (137-145); Total Protein 7.4 g/dL (6.3-8.2); Triglycerides 46 mg/dL (35-150)
== END ==
PROVIDERS: Family Provider Family Medicine; PCP Family Medicine; Referring Provider Family Medicine; Visit Provider Family Medicine
DX: K76.9 Liver disease, unspecified (principal); R16.0 Hepatomegaly, not elsewhere classified; R91.1 Solitary pulmonary nodule; Z01.419 Encounter for gynecological examination (general) (routine) without abnormal findings
CPT/HCPCS: 36415; 80053; 80061; 85025

== ENCOUNTER 2022-10-09 15:54 | Emergency (ER) | payer BC, SELFPAY ==
[2022-10-09] VITALS (10 sets, daily range): BP systolic 138–149; BP diastolic 70–82; PULSE 42–55; RESP 18–26; TEMP 36.2; O2SAT 98–100; BMI 29.7
--- NOTE | 2022-10-09 16:21 | DI.RAD.S_ITS ---
PROCEDURE: XR CHEST 1V INDICATIONS: chest pain TECHNIQUE: One view of the chest was acquired. COMPARISON: None. FINDINGS: Surgical changes and devices: None. Lungs and pleura: Lungs are clear. No pleural effusions or pneumothorax. Mediastinum: Mediastinal contours appear normal. Heart size is normal. Bones and chest wall: No suspicious bony lesions. Overlying soft tissues appear unremarkable. IMPRESSION: No acute cardiopulmonary pathology. Dictated by: Cristiano Bailon M.D. on 10/09/2022 at 16:59 Approved by: Cristiano Bailon M.D. on 10/09/2022 at 16:59
[2022-10-09 16:38] LABS: Add Manual Diff / Slide Review NO; Basophils Absolute Auto 100 /uL (0-100); Basophils Percent Auto 1.2 % (0-2); Eosinophils Absolute Auto 100 /uL (0-450); Eosinophils Percent Auto 1.6 % (2-4); Hematocrit 41.4 % (36-46); Hemoglobin 14.2 g/dL (12.0-16.0); Lymphocytes Absolute Auto 2600 /uL (1100-4500); Mean Corpuscular HGB Conc 34.2 % (30-36); Mean Corpuscular Volume 93.6 fL (80-100); Monocytes Absolute Auto 600 /uL (0-900); Neutrophils Absolute Auto 3900 /uL (1500-7000); Neutrophils Percent Auto 54.2 % (50-75); Platelet Count 245 X10^3/uL (150-400); Red Blood Cell Count 4.42 X10^6/uL (4.0-5.2); Red Cell Distribution Width 11.9 % (11.6-14.8); White Blood Cell Count 7.3 X10^3/uL (4.5-11.0)
[2022-10-09 16:39] LABS: INR 1.1 (0.9-1.3); Prothrombin Time 12.6 SECONDS (10.1-12.7)
[2022-10-09 16:42] LABS: PTT Partial Thromboplastin Tim 30 SECONDS (26-36)
[2022-10-09 16:44] LABS: Alanine Aminotransferase 18 IU/L (<35); Albumin 4.5 g/dL (3.5-5.0); Albumin Globulin Ratio 1.4 (1.0-2.8); Alkaline Phosphatase 47 U/L (38-126); Aspartate Aminotransferase 23 IU/L (14-36); BUN Creatinine Ratio 12.9 (6-22); Bilirubin Total 0.5 mg/dL (0.2-1.3); Blood Urea Nitrogen 8 mg/dL (7-17); Calcium 9.5 mg/dL (8.4-10.2); Carbon Dioxide 27 mmol/L (22-32); Chloride 105 mmol/L (98-107); Creatine Kinase 86 U/L (30-135); Estimated Glomerular Filt Rate > 60 mL/min (>60); Globulin 3.2 g/dL (1.7-4.1); Glucose 92 mg/dL (70-100); HEMOLYSIS < 15 (0-50); Lipase 92 U/L (23-300); Magnesium 1.9 mg/dL (1.6-2.3); Potassium 4.2 mmol/L (3.4-5.1); Sodium 140 mmol/L (137-145); Total Protein 7.7 g/dL (6.3-8.2)
[2022-10-09 16:55] LABS: Troponin I < 0.012 ng/mL (0.01-0.034)
[2022-10-09] MEDS: MECLIZINE HCL 12.5 MG TABLET 25 MG PO (19:38)
[2022-10-09] MEDS: SODIUM CHLORIDE 0.9% 1,000 ML 1000 ML IV (19:38)
--- NOTE | 2022-10-09 21:45 | ED.GENADULT ---
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 Was seen in the walk-in clinic and had severe positional vertigo with attempted Foreign maneuver to the left. She was sent to the ER for further evaluation. She does not complain of vomiting, no recent head trauma upper respiratory infections. She has not had similar symptoms. Related Data Previous Rx's Medication Instructions Recorded varenicline 0.5 mg (11)-1 mg (42) See Rx Instructions PO PER PKG DIR 03/30/22 tablets in a dose pack (Chantix #53 ea Starting Month Box) meclizine 12.5 mg tablet 12.5 mg PO BID-QID PRN motion 10/09/22 sickness #20 tabs ondansetron 4 mg disintegrating 4 mg PO Q8H PRN nausea and 10/09/22 tablet vomiting #7 tabs Allergies Allergy/AdvReac Type Severity Reaction Status Date / Time No Known Drug Allergies Allergy Verified 10/09/22 16:18 Review of Systems Review of Systems Narrative: Pertinent positive and negative findings as per HPI Patient History Medical History Abdominal pain Acute flank pain Ankle pain (~2017) Depression Liver mass Lower back pain Marijuana smoker Surgical History Anesthesia History of hand surgery (~08/2010) Family History Father No problems noted. Mother Hypertension Mental health problem Pacemaker Social History seatbelt use: always helmet use: Yes Smoking Status: Former smoker substance use type: marijuana during the past year weight has: remained stable well-balanced diet: daily or most days daily servings fruits/ve-4 Smoking Status: Former smoker Substance Use Type: marijuana Exam Initial Vital Signs Initial Vital Signs: Vital Signs Temperature 97.1 F L 10/09/22 16:18 Pulse Rate 44 L 10/09/22 16:18 Respiratory Rate 18 10/09/22 16:18 Blood Pressure 138/70 10/09/22 16:18 Pulse Oximetry 99 10/09/22 16:18 Oxygen Delivery Method Room Air 10/09/22 16:18 General: Alert appropriate in no acute distress HEENT: Pupils are equal and reactive. She has rotatory nystagmus appreciated when turning her head to the left that resolves nicely after fluids and a dose of meclizine. Remainder of cranial nerves are unremarkable. Respiratory: Able to speak in full sentences, no obvious respiratory distress Skin: No obvious rashes, warm and dry Neurologic: Grossly intact no obvious asymmetries or abnormalities Psych: appropriate insight and affect, cooperative Course Orders Ordered: ED Orders 10/09/22 16:21 XR chest 1V Stat 10/09/22 16:23 Complete Blood Count AUTO DIFF Stat Comprehensive Metabolic Panel Stat Lipase Stat Magnesium Stat PTT Partial Thromboplastin Mendez Stat Prothrombin Time INR Stat Troponin & CK Cardiac Panel Stat 10/09/22 16:29 EKG-12 Lead Stat Discontinued Medications Aspirin (Aspirin 81 Mg Chew Tab) 324 mg PO NOW ONE Stop: 10/09/22 16:22 Last Admin: 10/09/22 18:24 Dose: Not Given Documented By: KLS Sodium Chloride (Normal Saline 0.9%) 1,000 mls @ 1,000 mls/hr IV BOLUS ONE Stop: 10/09/22 20:29 Last Infusion: 10/09/22 21:08 Dose: 0 mls/hr Documented By: Admin: 10/09/22 19:38 Dose: 1,000 mls/hr Documented By: Meclizine HCl (Meclizine Hcl 12.5 Mg Tablet) 25 mg PO NOW ONE Stop: 10/09/22 19:31 Last Admin: 10/09/22 19:38 Dose: 25 mg Documented By: Vital Signs Vital signs: Vital Signs - 8 hr 10/09/22 16:18 10/09/22 18:37 10/09/22 18:37 Temperature 97.1 F L Pulse Rate 44 L 49 L Respiratory Rate 18 Blood Pressure 138/70 149/73 H Pulse Oximetry 99 100 Oxygen Delivery Method Room Air Room Air 10/09/22 19:00 10/09/22 19:30 10/09/22 20:00 Temperature Pulse Rate 49 L 50 L 49 L Respiratory Rate 19 18 26 H Blood Pressure Pulse Oximetry 99 99 100 Oxygen Delivery Method Room Air 10/09/22 20:30 10/09/22 21:00 10/09/22 21:06 Temperature Pulse Rate 48 L 42 L 50 L Respiratory Rate 25 H 18 20 Blood Pressure 139/82 Pulse Oximetry 100 98 98 Oxygen Delivery Method Room Air Medical Decision Making Lab Data 10/09/22 16:23 10/09/22 16:23 Labs: Lab Results 10/09/22 10/09/22 10/09/22 Range/Units 16:23 16: 16:23 WBC 7.3 (4.5-11.0) X10^3/uL RBC 4.42 (4.0-5.2) X10^6/uL Hgb 14.2 (12.0-16.0) g/dL Hct 41.4 (36-46) % MCV 93.6 (80-100) fL MCH 32.0 (26-34) PG MCHC 34.2 (30-36) % RDW 11.9 (11.6-14.8) % Plt Count 245 (150-400) X10^3/uL Neut % (Auto) 54.2 (50-75) % Lymph % (Auto) 35.0 (25-40) % [place] % (Auto) 8.0 (3-14) % Eos % (Auto) 1.6 L (2-4) % Baso % (Auto) 1.2 (0-2) % Neut # (Auto) 3900 (9537-2324) /uL Lymph # (Auto) 2600 (1102-9000) /uL [place] # (Auto) 600 (0-900) /uL Eos # (Auto) 100 (0-450) /uL Baso # (Auto) 100 (0-100) /uL PT 12.6 (10.1-12.7) SECONDS INR 1.1 (0.9-1.3) APTT 30 (26-36) SECONDS Sodium 140 (137-145) mmol/L Potassium 4.2 (3.4-5.1) mmol/L Chloride 105 (98-107) mmol/L Carbon Dioxide 27 (22-32) mmol/L BUN 8 (7-17) mg/dL Creatinine 0.62 (0.52-1.04) mg/dL Estimated GFR > 60 (>60) mL/min BUN/Creatinine Ratio 12.9 (6-22) Glucose 92 (70-100) mg/dL Calcium 9.5 (8.4-10.2) mg/dL Magnesium 1.9 (1.6-2.3) mg/dL Total Bilirubin 0.5 (0.2-1.3) mg/dL AST 23 (14-36) IU/L ALT 18 (<35) IU/L Alkaline Phosphatase 47 (38-126) U/L Total Creatine Kinase 86 (30-135) U/L Troponin I < 0.012 (0.01-0.034) ng/mL Total Protein 7.7 (6.3-8.2) g/dL Albumin 4.5 (3.5-5.0) g/dL Globulin 3.2 (1.7-4.1) g/dL Albumin/Globulin Ratio 1.4 (1.0-2.8) Lipase 92 (23-300) U/L Urine Dip Bedside Urine Glucose Negative Bedside Urine Bilirubin - Negative Bedside Urine Ketone - Negative Urine Specific [place] 1.005 Bedside Urine Occult Blood - Negative Bedside Urine pH 6.0 Bedside Urine Protein - Negative Bedside Urine Urobilinogen - Negative Bedside Urine Nitrite - Negative Bedside Urine Leukocytes - Negative Esterase Point of care testing: Urine Dip Bedside Urine Glucose Negative Bedside Urine Bilirubin - Negative Bedside Urine Ketone - Negative Urine Specific [place] 1.005 Bedside Urine Occult Blood - Negative Bedside Urine pH 6.0 Bedside Urine Protein - Negative Bedside Urine Urobilinogen - Negative Bedside Urine Nitrite - Negative Bedside Urine Leukocytes - Negative Esterase [facility] Narrative Medical decision making narrative: CC: Severe vertigo when turning her head to the left Data collected from: patient, Differential considered: BPV, stroke, labyrinthitis, other neuralgia Exam documented above, pertinent findings include: After fluids and oral meclizine, she is no longer having any symptoms, rotatory nystagmus has resolved completely. Lab Test results independently reviewed as above. Pertinent findings: CBC is unremarkable Chemistries are reassuring Troponin is unremarkable Independently reviewed EKG shows sinus bradycardia at a rate of 43, normal axis, no acute ischemic changes Treatments: 1 L of fluid, oral meclizine Re-evaluations: After treatment, symptoms have resolved Discussion: Acute episode of benign positional vertigo with the were symptoms going to the left. We did review Foreign maneuvers however after the meclizine and fluids they are not needed. Discussed the suspected pathophysiology of benign positional vertigo treatments and options. At this point there is no evidence of stroke, intracranial hemorrhage or alternate explanation that would require further imaging or workup. She is safe for discharge home. Discharge Plan Departure Patient Disposition: Home Clinical Impression: Benign paroxysmal positional vertigo Instructions: DI for Benign Paroxysmal Positional Vertigo Activity Restrictions/Additional Instructions: Thank you for coming in today The dizziness is miserable feeling. I am glad that the fluids in the meclizine that we gave you in the emergency department was helpful. If you continue to have symptoms there is a prescription for ondansetron, a nausea medication that is available for you to picker operator after being seen at the walk-in clinic. If that does not seem to work kill you can use meclizine/Antivert. This is medicine that we gave you in the emergency department and it is available [id number] as a seasickness medication. Please read through the 8 instructions on benign positional vertigo. The Foreign maneuver is what the walk-in clinic practitioner was trying to show you. The instructions should explain that you can also look it up on you tube, there multiple videos that show how it works. If you find that you are getting worse or develop any new symptoms, please feel free to return to the emergency department for further evaluation. Prescriptions: No Action ondansetron 4 mg tablet,disintegrating 4 mg PO Q8H PRN (Reason: nausea and vomiting) Qty: 7 0RF meclizine 12.5 mg tablet 12.5 mg PO BID-QID PRN (Reason: motion sickness) Qty: 20 0RF varenicline [Chantix Starting Month Box] 0.5 mg (11)- 1 mg (42) tablets,dose pack See Rx Instructions PO PER PKG DIR Qty: 53 0RF Rx Instructions: PO PER PKG DIR Referrals: Allen Bolaños MD [Primary Care Provider] - Stand Alone Forms: Patient Portal/API, Work Release Note
== END 2022-10-09 22:08 | disposition home or self-care (01) ==
PROVIDERS: Emergency Medicine; Emergency Provider Emergency Medicine; Family Provider Family Medicine; PCP Family Medicine
DX: H81.10 Benign paroxysmal vertigo, unspecified ear (principal)
CPT/HCPCS: 36415; 71045; 80053; 81003; 82550; 83690; 83735; 84484; 85025; 85610; 85730; 93005; 99284

== ENCOUNTER → 2023-03-03 | Outpatient (CLI) | payer BC, SELFPAY ==
--- NOTE | 2023-03-03 13:28 | DI.MG.S_ITS ---
BILATERAL DIGITAL SCREENING MAMMOGRAM 3D/2D WITH CAD: 03/03/2023 CLINICAL: Routine screening. No prior exams were available for comparison. Both breasts are heterogeneously dense, which may obscure small masses (category c / 51-75% glandular tissue). Current study was also evaluated with a Computer Aided Detection (CAD) system. No significant masses, calcifications, or other findings are seen in either breast. IMPRESSION: NEGATIVE There is no mammographic evidence of malignancy. A 1 year screening mammogram is recommended. Based on the Tyrer Cuzick model (a risk assessment model) the patient's lifetime risk is 12.6% and her 10 year risk is 3.7%. According to the ACR, ACS, and NCCN guidelines, an annual breast MRI exam along with mammogram is recommended if the patient's lifetime risk is 20% or greater. This exam was interpreted at Station ID: [id number]. NOTE: For mammograms, a report in lay terms will be sent to the patient. Approximately 15% of breast malignancies will not be visualized mammographically. In the management of a palpable breast mass, a negative mammogram must not discourage biopsy of a clinically suspicious lesion. Electronically Signed By: Kennedy sandra/eduarda:03/22/2023 16:26:02 letter sent: Normal Exam ACR BI-RADS Category 1: Negative [id number]
== END ==
LOC: MAMMO 13:02
PROVIDERS: PCP Family Medicine; Referring Provider Family Medicine; Visit Provider Family Medicine
DX: Z12.31 Encounter for screening mammogram for malignant neoplasm of breast (principal); R92.333 Mammographic heterogeneous density, bilateral breasts
CPT/HCPCS: 77063; 77066; 77067; G0279

== ENCOUNTER → 2023-08-28 16:47 | Outpatient (CLI) | payer BC, SELFPAY ==
[2023-08-28 17:58] LABS: Erythrocyte Sedimentation Rate 9 MM/HR (0-20)
[2023-08-28 18:22] LABS: HEMOLYSIS < 15 (0-50); Iron 91 ug/dL (37-170)
[2023-08-28 18:32] LABS: Percent Iron Saturation 30 % (15-50); Total Iron Binding Capacity 299 ug/dL (265-497)
[2023-08-28 18:41] LABS: Vitamin B12 365 pg/mL (239-931)
== END ==
PROVIDERS: PCP Family Medicine; Referring Provider Physician Assistant; Visit Provider Physician Assistant
DX: I73.00 Raynaud's syndrome without gangrene (principal); R20.0 Anesthesia of skin
CPT/HCPCS: 36415; 82607; 83540; 83550; 85651; 86038

== ENCOUNTER → 2023-09-08 09:36 | Outpatient (CLI) | payer BC, SELFPAY ==
[2023-09-08 11:04] LABS: Add Manual Diff / Slide Review NO; Basophils Absolute Auto 0 /uL (0-100); Basophils Percent Auto 0.6 % (0-2); Eosinophils Absolute Auto 200 /uL (0-450); Eosinophils Percent Auto 3.7 % (2-4); Hematocrit 38.4 % (36-46); Hemoglobin 12.7 g/dL (12.0-16.0); Lymphocytes Absolute Auto 1600 /uL (1100-4500); Lymphocytes Percent Auto 37.1 % (25-40); Mean Corpuscular HGB Conc 33.2 % (30-36); Mean Corpuscular Hemoglobin 31.4 PG (26-34); Mean Corpuscular Volume 94.5 fL (80-100); Monocytes Absolute Auto 300 /uL (0-900); Monocytes Percent Auto 8.3 % (3-14); Neutrophils Absolute Auto 2100 /uL (1500-7000); Neutrophils Percent Auto 50.3 % (50-75); Platelet Count 211 X10^3/uL (150-400); Red Blood Cell Count 4.06 X10^6/uL (4.0-5.2); Red Cell Distribution Width 12.6 % (11.6-14.8); White Blood Cell Count 4.2 X10^3/uL (4.5-11.0)
[2023-09-08 11:07] LABS: Appearance Urine UA CLEAR; Bilirubin Urine UA NEGATIVE (NEGATIVE); Color Urine UA YELLOW; Glucose Urine UA NEGATIVE (Negative); Ketones Urine UA NEGATIVE (NEGATIVE); Leukocyte Esterase Urine UA NEGATIVE (NEGATIVE); Nitrite Urine UA NEGATIVE (Negative); Occult Blood Urine UA NEGATIVE (Negative); Protein Urine UA NEGATIVE (Negative); Specific Gravity Urine UA 1.015 (1.000-1.035); Urobilinogen Urine UA 0.2 E.U./dL (0.2); pH Urine UA 7.5 (4.5-8.0)
[2023-09-08 11:24] LABS: Bacteria Urine None Seen; Culture Indicated Urine Cult Not Indicated; RBC Urine 0-1/HPF (0-5/HPF); Squamous Epithelial Cell Urine 0-1 /HPF (0-5/HPF); Urine Volume 10mL (spun); WBC Urine 0-1/HPF (0-5/HPF)
[2023-09-08 11:28] LABS: Alanine Aminotransferase 17 IU/L (<35); Albumin Globulin Ratio 1.7 (1.0-2.8); Alkaline Phosphatase 49 U/L (38-126); Aspartate Aminotransferase 23 IU/L (14-36); BUN Creatinine Ratio 23.8 (6-22); Bilirubin Total 0.5 mg/dL (0.2-1.3); Blood Urea Nitrogen 15 mg/dL (7-17); Calcium 8.9 mg/dL (8.4-10.2); Carbon Dioxide 30 mmol/L (22-32); Chloride 108 mmol/L (98-107); Cholesterol 160 mg/dL (140-199); Estimated Glomerular Filt Rate > 60 mL/min (>60); Globulin 2.3 g/dL (1.7-4.1); Glucose 83 mg/dL (70-100); HDL Cholesterol 67 mg/dL (40-60); HEMOLYSIS < 15 (0-50); LDL Cholesterol Calculated 82 mg/dL (<100); Potassium 4.5 mmol/L (3.4-5.1); Sodium 142 mmol/L (137-145); Total Protein 6.3 g/dL (6.3-8.2); Triglycerides 54 mg/dL (35-150)
[2023-09-08 11:35] LABS: Creatinine Urine Random 115.91 mg/dL
[2023-09-08 11:40] LABS: Microalbumin Urine Random < 0.6 mg/dL (0-1.6)
[2023-09-08 11:58] LABS: TSH w/ Reflex to FT4 1.41 uIU/mL (0.47-4.68)
[2023-09-09 08:09] LABS: Apolipoprotein B 71 mg/dL (<90)
== END ==
LOC: LAB 09:37
PROVIDERS: Physician Assistant; PCP Family Medicine; Referring Provider Family Medicine; Visit Provider Family Medicine
DX: Z78.0 Asymptomatic menopausal state (principal); F10.91 Alcohol use, unspecified, in remission; F32.9 Major depressive disorder, single episode, unspecified; G47.00 Insomnia, unspecified; I73.00 Raynaud's syndrome without gangrene; R20.0 Anesthesia of skin
CPT/HCPCS: 36415; 80053; 80061; 81001; 82043; 82172; 82570; 84443; 85025

== ENCOUNTER → 2023-09-21 13:46 | Outpatient (CLI) | payer BC, SELFPAY ==
--- NOTE | 2023-09-21 13:47 | DI.RAD.S_ITS ---
PROCEDURE: XR FOOT LT MIN 3V INDICATIONS: Left foot and heel pain TECHNIQUE: 3 views of the foot were acquired. COMPARISON: None. FINDINGS: Bones: No fractures or dislocations. Plantar calcaneal enthesophyte. No suspicious bony lesions. Soft tissues: No tibiotalar joint effusion. Achilles tendon appears normal. IMPRESSION: No acute bony abnormality. Dictated by: Hammad Cervantes M.D. on 09/21/2023 at 16:25 Approved by: Hammad Cervantes M.D. on 09/21/2023 at 16:25
== END ==
LOC: RAD 13:47
PROVIDERS: PCP Family Medicine; Referring Provider Physician Assistant Surgical; Visit Provider Physician Assistant Surgical
DX: M77.32 Calcaneal spur, left foot (principal); M79.672 Pain in left foot
CPT/HCPCS: 73630

== ENCOUNTER → 2024-02-13 13:45 | Outpatient (CLI) | payer BC, SELFPAY ==
[2024-02-13 15:04] LABS: Influenza A - CEPHEID Flu A POSITIVE (NEGATIVE); Influenza B - CEPHEID Flu B NEGATIVE (NEGATIVE); Respiratory Syncytial Virus Negative (Negative)
[2024-02-13 15:11] LABS: COVID-19 CEPHEID 4-PLEX PCR Negative (Negative)
== END ==
PROVIDERS: PCP Family Medicine; Visit Provider Nurse Practitioner Family
DX: R05.1 Acute cough (principal)
CPT/HCPCS: 0241U

== ENCOUNTER → 2024-02-13 14:00 | Outpatient (CLI) | payer BC, SELFPAY ==
--- NOTE | 2024-02-13 14:02 | DI.RAD.S_ITS ---
PROCEDURE: XR CHEST 2V INDICATIONS: Cough TECHNIQUE: 2 views of the chest were acquired. COMPARISON: [facility], CR, XR CHEST 1V, 10/09/2022, 16:46. FINDINGS: Surgical changes and devices: None. Lungs and pleura: No dense airspace disease or pleural effusions. Mediastinum: Normal heart size Bones and chest wall: Unremarkable IMPRESSION: No acute radiographic abnormality. Dictated by: Kennedy Carlos M.D. on 02/13/2024 at 13:36 Approved by: Kennedy Carlos M.D. on 02/13/2024 at 13:36
== END ==
LOC: RAD 14:01
PROVIDERS: PCP Family Medicine; Referring Provider Nurse Practitioner Family; Visit Provider Nurse Practitioner Family
DX: R05.1 Acute cough (principal)
CPT/HCPCS: 0241U; 71046

== ENCOUNTER → 2024-02-23 14:34 | Outpatient (CLI) | payer BC, SELFPAY ==
--- NOTE | 2024-02-23 | DI.MRI.S_ITS ---
PROCEDURE: MR ANKLE LT WO CON INDICATIONS: PLANTAR FASCIAL FIBROMAATOSIS TECHNIQUE: Noncontrast sagittal T1 spin echo and T2 fast spin echo with fat saturation, axial proton density fast spin echo and T2 fast spin echo with fat saturation, coronal T1 spin echo and T2 fast spin echo with fat saturation through the ankle/hindfoot. COMPARISON: [facility], CR, XR FOOT LT MIN 3V, 09/21/2023, 13:48. FINDINGS: Image quality: Excellent. Bones: The bone marrow signal is normal. The anterior process of the calcaneus and lateral process of the talus are intact. No talar dome osteochondral defect is seen. Joints: There is no significant joint effusion. 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 Sinus tarsi: The sinus tarsi signal is normal. Syndesmotic ligaments: The anterior and posterior inferior syndesmotic ligaments are normal. Lateral collateral ligament: There is low signal thickening of the anterior talofibular ligament. The lateral collateral ligaments are otherwise normal. Deltoid ligament: The visualized components of the deltoid ligament, that being the posterior tibiotalar and tibiospring ligaments, are normal. Calcaneonavicular spring ligament: The superomedial component of the calcaneonavicular spring ligament is grossly intact. Tendons: The Achilles tendon is normal. There is a split tear of the peroneus brevis with distal reconstitution (/-32). A moderate amount of fluid is present in the peroneal tendon sheath (4/24). The extensor, flexor and peroneal tendons are otherwise normal. The peroneal tendons are appropriately situated within the retromalleolar groove, and the superficial peroneal retinaculum is intact. Plantar aponeurosis: There is mild intrasubstance signal and thickening of the central band of the plantar fascia at the heel (6/14). Plantar musculature: There is partial fatty replacement of the abductor digiti minimi (8/17). There are no other findings of denervation involving the plantar muscles of the foot. Nerves: The visualized nerves are unremarkable. Other: Achilles calcaneal and plantar calcaneal enthesopathy (5/14). Mild edema is present around the retro Achilles bursa along the calcaneal insertion (6/15). Heterotopic ossification and thickening of the dorsal talonavicular ligament is present (6/14), likely secondary to prior injury/remodeling. Heterotopic ossification is present along the course of the M1-M2 ligament, likely secondary to prior injury and subsequent remodeling (05/09). IMPRESSION: 1. Mild central band plantar fasciitis at the heel, in the setting of calcaneal enthesopathy. 2. Split tear of the peroneus brevis with moderate tenosynovitis. 3. Partial fatty replacement of the abductor digiti minimi, which can be seen with Kohler's neuropathy. 4. Mild retro Achilles bursitis. 5. Chronic ATFL sprain. Dictated by: Calixto Lim M.D. on 02/26/2024 at 10:11 Approved by: Calixto Lim M.D. on 02/26/2024 at 10:32
== END ==
PROVIDERS: PCP Family Medicine; Referring Provider Podiatrist; Visit Provider Podiatrist
DX: M72.2 Plantar fascial fibromatosis (principal); M76.62 Achilles tendinitis, left leg; S93.492A Sprain of other ligament of left ankle, initial encounter; M77.32 Calcaneal spur, left foot
CPT/HCPCS: 73721

== ENCOUNTER → 2024-03-05 17:19 | Outpatient (CLI) | payer BC, SELFPAY ==
--- NOTE | 2024-03-05 17:20 | DI.MG.S_ITS ---
BILATERAL DIGITAL SCREENING MAMMOGRAM 3D/2D WITH CAD: 03/05/2024 CLINICAL: Routine screening. Comparison is made to exam dated: 03/03/2023 mammogram - . There are scattered areas of fibroglandular density (category b / 25%-50% glandular tissue). Current study was also evaluated with a Computer Aided Detection (CAD) system. No significant masses, calcifications, or other findings are seen in either breast. There has been no significant interval change. IMPRESSION: NEGATIVE There is no mammographic evidence of malignancy. A 1 year screening mammogram is recommended. Based on the Tyrer Cuzick model (a risk assessment model) the patient's lifetime risk is 8.4% and her 10 year risk is 2.5%. According to the ACR, ACS, and NCCN guidelines, an annual breast MRI exam along with mammogram is recommended if the patient's lifetime risk is 20% or greater. This exam was interpreted at Station ID: [id number]. NOTE: For mammograms, a report in lay terms will be sent to the patient. Approximately 15% of breast malignancies will not be visualized mammographically. In the management of a palpable breast mass, a negative mammogram must not discourage biopsy of a clinically suspicious lesion. Electronically Signed By: Shahzad chester/eduarda:03/06/2024 07:52:50 letter sent: Normal Exam ACR BI-RADS Category 1: Negative
== END ==
PROVIDERS: PCP Family Medicine; Referring Provider Family Medicine; Visit Provider Family Medicine
DX: Z12.31 Encounter for screening mammogram for malignant neoplasm of breast (principal)
CPT/HCPCS: 77063; 77067

== ENCOUNTER → 2024-10-29 13:19 | Outpatient (CLI) | payer BC, SELFPAY ==
[2024-10-29 14:43] LABS: Add Manual Diff / Slide Review NO; Hematocrit 41.0 % (36-46); Hemoglobin 13.8 g/dL (12.0-16.0); Lymphocytes Absolute Auto 2300 /uL (1100-4500); Mean Corpuscular HGB Conc 33.7 % (30-36); Mean Corpuscular Hemoglobin 30.8 PG (26-34); Mean Corpuscular Volume 91.4 fL (80-100); Platelet Count 210 X10^3/uL (150-400)
[2024-10-29 14:58] LABS: HEMOLYSIS < 15 (0-50); Iron 128 ug/dL (37-170)
[2024-10-29 15:06] LABS: Alanine Aminotransferase 19 IU/L (<35); Albumin 4.4 g/dL (3.5-5.0); Albumin Globulin Ratio 1.5 (1.0-2.8); Alkaline Phosphatase 67 U/L (38-126); Blood Urea Nitrogen 15 mg/dL (7-17); Calcium 9.8 mg/dL (8.4-10.2); Carbon Dioxide 28 mmol/L (22-32); Chloride 105 mmol/L (98-107); Cholesterol 176 mg/dL (140-199); Estimated Glomerular Filt Rate > 60 mL/min (>60); Globulin 3.0 g/dL (1.7-4.1); Glucose 88 mg/dL (70-99); HDL Cholesterol 69 mg/dL (40-60); HEMOLYSIS < 15 (0-50); Potassium 5.1 mmol/L (3.4-5.1); Sodium 143 mmol/L (137-145); Total Protein 7.4 g/dL (6.3-8.2); Triglycerides 82 mg/dL (35-150)
[2024-10-29 15:11] LABS: Percent Iron Saturation 36 % (15-50); Total Iron Binding Capacity 353 ug/dL (265-497); Transferrin 306 mg/dL (206-381)
[2024-10-29 15:32] LABS: TSH w/ Reflex to FT4 1.24 uIU/mL (0.47-4.68)
== END ==
PROVIDERS: PCP Family Medicine; Referring Provider Family Medicine; Visit Provider Family Medicine
DX: R53.83 Other fatigue (principal); R41.89 Other symptoms and signs involving cognitive functions and awareness; Z00.00 Encounter for general adult medical examination without abnormal findings
CPT/HCPCS: 36415; 80053; 80061; 83540; 83550; 84443; 85025

== ENCOUNTER → 2024-10-30 19:39 | Outpatient (CLI) | payer BC, SELFPAY ==
--- NOTE | 2024-10-30 19:40 | DI.MRI.S_ITS ---
PROCEDURE: MR ANKLE LT WO CON INDICATIONS: SPRAIN TECHNIQUE: Noncontrast sagittal T1 spin echo and T2 fast spin echo with fat saturation, axial proton density fast spin echo and T2 fast spin echo with fat saturation, coronal T1 spin echo and T2 fast spin echo with fat saturation through the ankle/hindfoot. COMPARISON: [facility], MR, MR ANKLE LT WO CON, 02/23/2024, 15:02. FINDINGS: Image quality: Excellent. Osseous structures: No fracture. No suspicious marrow replacing process. Partial-thickness articular cartilage loss of the dorsal 1st tarsometatarsal joint with osteophytosis. Capsular thickening and osteophytosis formation at the talonavicular joint, likely sequela of remote capsular injury. Bone marrow edema within a plantar calcaneal tuberosity enthesophyte. Ligaments: The syndesmotic ligaments are intact. Chronic thickening and scarring of the anterior talofibular ligament. Intact posterior talofibular ligament. Intact calcaneofibular ligament. Intact deltoid ligament. Intact spring ligament complex. Intact interosseous, bifid and cervical ligaments. Intact Lisfranc ligament. Muscles / Tendons: Intact anterior extensor tendons. Intact medial flexor tendons. Intact Achilles tendon. Mild edema within the distal mild tendinous junction and posterior aponeurosis of the soleus, correlate for mild strain. Chronic longitudinal split tear and severe tendinosis of peroneus brevis from the retro malleolar to the inframalleolar tendon with total length of 4.7 cm (09/03). Associated tenosynovitis in the peroneal tendon sheath. Scarring and thickening of the superior peroneal retinaculum. The plantar peroneus longus tendon is intact. Similar chronic atrophy of abductor digiti minimi. Moderate atrophy of extensor digitorum brevis. Plantar fascia: Thickening and scarring of the central band of the plantar fascia with generative undersurface partial tearing at the calcaneal spur, similar to prior exam. Miscellaneous: Preserved fat in sinus tarsi. Subcutaneous fat edema along the lateral malleolus. Neurovascular: Unremarkable. IMPRESSION: 1. Chronic scarring of the anterior talofibular ligament, consistent with prior sprain. No acute tear. 2. 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 3. Findings of plantar fasciitis with chronic degeneration and partial tearing of the central band at the origin. 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 4. Sequela of prior dorsal talonavicular capsular injury. Dictated by: David Vernon M.D. on 10/31/2024 at 10:12 Approved by: David Vernon M.D. on 10/31/2024 at 10:20
== END ==
LOC: MRI 19:39
PROVIDERS: PCP Family Medicine; Referring Provider Podiatrist; Visit Provider Podiatrist
DX: S93.492A Sprain of other ligament of left ankle, initial encounter (principal); S96.812A Strain of other specified muscles and tendons at ankle and foot level, left foot, initial encounter; M72.2 Plantar fascial fibromatosis; G62.89 Other specified polyneuropathies
CPT/HCPCS: 73721